=== PATIENT | male | born 1950 | race African-American/Black ===

== ENCOUNTER → 2016-10-20 | Outpatient (CLI) | payer OTHER ==
[2016-10-20 09:23] LABS: Urine RBC None Seen /hpf (0 - 3)
[2016-10-20 09:29] LABS: Basophils # (auto) 0.1 uL; Eosinophils # (auto) 0.2 uL; Eosinophils % (auto) 2.9 % (0.0-7.0); Hematocrit 41.2 % (41.0-53.0); Hemoglobin 13.3 g/dL (13.5-17.5); Lymphocytes # (auto) 1.7 uL; Lymphocytes % (auto) 32.1 % (10.0-50.0); Mean Corpuscular Hemoglobin 27.8 pg (28.0-32.0); Mean Corpuscular Hgb Conc. 32.3 g/dL (32.0-36.0); Mean Corpuscular Volume 85.9 fL (80.0-100.0); Mean Platelet Volume 10.2 fL (7.4-10.4); Monocytes # (auto) 0.4 uL; Monocytes % (auto) 6.5 % (0.0-12.0); Neutrophils # (auto) 3.1 uL; Neutrophils % (auto) 57.5 % (37.0-80.0); Platelet Count (auto) 243 10^3/uL (140-450); Red Cell Distribution Width 13.9 % (11.6-16.0); White Blood Cell 5.4 10^3/uL (4.4-10.8)
[2016-10-20 10:01] LABS: Albumin 3.1 g/dL (3.4-5.0); BUN/Creatinine Ratio 20.8; Bilirubin, Total 0.4 mg/dL (0.2-1.0); Potassium 3.6 mmol/L (3.5-5.1); Total Protein 6.9 g/dL (6.4-8.2)
[2016-10-20 10:59] LABS: Urine Bilirubin Negative (Negative); Urine Blood Negative /uL (Negative); Urine Color Yellow (Yellow); Urine Glucose Normal (Normal); Urine Ketone Negative (Negative); Urine Mucus FEW (None Seen); Urine Nitrite Negative (Negative); Urine Squamous Epithelial Cell FEW /hpf (<5); Urine Urobilinogen Normal (Negative)
== END | disposition home or self-care (01) ==
LOC: LAB 08:58
DX: M54.16 Radiculopathy, lumbar region (principal); Z12.11 Encounter for screening for malignant neoplasm of colon; Z90.12 Acquired absence of left breast and nipple
CPT/HCPCS: 36415; 80053; 80061; 81001; 84443; 85025; 85652

== ENCOUNTER → 2017-03-27 | Outpatient (CLI) | payer OTHER | END | disposition home or self-care (01) | LOC: EDSEX 13:10 → LAB 13:10 | PROVIDERS: ATTEND Internal Medicine | DX: E03.9 Hypothyroidism, unspecified (principal) | CPT/HCPCS: 36415; 84443 ==

== ENCOUNTER 2017-04-03 02:15 | Inpatient (IN) | payer OTHER, MEDICAID ==
[~2017-04-03] VITALS: Ht 165.1 cm; Wt 47.5 kg
[2017-04-03 03:07] LABS: Basophils # (auto) 0.1 uL; Basophils % (auto) 1.2 % (0.0-2.0); Eosinophils # (auto) 0.2 uL; Eosinophils % (auto) 2.1 % (0.0-7.0); Hematocrit 38.2 % (36.0-46.0); Hemoglobin 12.6 g/dL (12.2-16.2); Lymphocytes # (auto) 1.5 uL; Lymphocytes % (auto) 18.7 % (10.0-50.0); Mean Corpuscular Hemoglobin 28.7 pg (28.0-32.0); Mean Platelet Volume 10.2 fL (6.9-10.8); Monocytes # (auto) 0.9 uL; Monocytes % (auto) 11.3 % (0.0-12.0); Neutrophils # (auto) 5.5 uL; Neutrophils % (auto) 66.7 % (37.0-80.0); Nucleated Red Blood Cells % 0.1 %; Platelet Count (auto) 213 10^3/uL (140-450); White Blood Cell 8.2 10^3/uL (4.4-10.8)
[2017-04-03 03:21] LABS: Albumin 2.7 g/dL (3.4-5.0); BUN/Creatinine Ratio 18.2; Calcium 9.3 mg/dL (8.5-10.1); Potassium 3.3 mmol/L (3.5-5.1)
[2017-04-03 03:29] LABS: Bilirubin, Total 0.6 mg/dL (0.2-1.0); Total Protein 7.1 g/dL (6.4-8.2)
[2017-04-03] MEDS ORDERED: SODIUM CHLORIDE 0.9% 1,000 ML IV ONE ×2 (08:07)
[2017-04-03] MEDS ORDERED: CLINDAMYCIN 600MG IV 50 ML IV ONE (08:15)
[2017-04-03] MEDS ORDERED: cefTRIAXone 1GM/50ML D5W 50 ML IV ONE (08:15)
[2017-04-03] MEDS: cefTRIAXone 1GM/50ML D5W 50 ML IV SCH (09:00)
[2017-04-03] MEDS ORDERED: POTASSIUM CHL 10 Meq TABLET PO ONE (09:00)
[2017-04-03] MEDS ORDERED: ACETAMINOPHEN 325 MG TAB PO PRN (09:00)
[2017-04-03] MEDS ORDERED: DOCUSATE SOD 100 MG CAP PO PRN (09:00)
[2017-04-03] MEDS ORDERED: LEVOTHYROXINE SODIUM 100 MCG TAB PO ONE (09:00)
[2017-04-03] MEDS ORDERED: cloNIDine HCL 0.1 MG TAB PO PRN (09:00)
[2017-04-03 09:09] LABS: Lactic Acid w/Reflex 2.4 mmol/L (0.4-2.0)
[2017-04-03] MEDS ORDERED: HYDROcodone-ACET 5/325MG TAB PO ONE (09:15)
[2017-04-03] MEDS: MULTIPLE VITAMIN TAB PO SCH (09:17)
[2017-04-03] MEDS: ASCORBIC ACID 500 MG TAB PO SCH ×2 (09:17→23:10)
[2017-04-03] MEDS: ZINC SULFATE 220 MG CAP PO SCH (09:17)
[2017-04-03 09:39] LABS: REFLEX LACTIC ACID YES OR NO YES
[2017-04-03 09:55] LABS: INR 1.03 (0.9-1.15); Prothrombin Time 11.2 sec (9.37-12.3)
[2017-04-03 10:02] LABS: Urine Bilirubin Negative (Negative); Urine Blood Negative /uL (Negative); Urine Color Yellow (Yellow); Urine Glucose Normal (Normal); Urine Ketone Negative (Negative); Urine Mucus FEW (None Seen); Urine Nitrite Negative (Negative); Urine RBC 8 /hpf (0 - 4); Urine Squamous Epithelial Cell FEW /hpf (<5)
[2017-04-03] MEDS: ONDANSETRON HCL 4 MG/2 ML VIAL IV PRN (10:51)
[2017-04-03] MEDS: MORPHINE SULF INJ 2 MG/ML SYRINGE 1ML IV PRN ×3 (10:52→23:22)
[2017-04-03] MEDS: BOOST PLUS 8 ounce PO SCH ×2 (12:12→18:28)
[2017-04-03] MEDS: SODIUM CHLOR 0.9% PF (SALINE LOCK) 10ML VIAL IV SCH ×2 (14:06→22:00)
[2017-04-03] MEDS: CLINDAMYCIN 300MG IV 50 ML IV SCH ×2 (14:09→23:13)
[2017-04-03 22:13] VITALS: BP 103/70
[2017-04-03] MEDS: HYDROcodone-ACET 5/325MG TAB PO PRN (23:09)
[2017-04-04] VITALS (7 sets, daily range): BP systolic 97–117; BP diastolic 66–78
[2017-04-04] MEDS: SODIUM CHLOR 0.9% PF (SALINE LOCK) 10ML VIAL IV SCH ×3 (05:08→21:23)
[2017-04-04 05:56] LABS: Basophils # (auto) 0.1 uL; Basophils % (auto) 1.4 % (0.0-2.0); Eosinophils # (auto) 0.4 uL; Eosinophils % (auto) 7.5 % (0.0-7.0); Lymphocytes # (auto) 1.6 uL; Lymphocytes % (auto) 26.1 % (10.0-50.0); Mean Corpuscular Hgb Conc. 33.2 g/dL (32.0-36.0); Mean Corpuscular Volume 87.4 fL (80.0-100.0); Mean Platelet Volume 10.1 fL (6.9-10.8); Monocytes # (auto) 0.9 uL; Monocytes % (auto) 14.5 % (0.0-12.0); Neutrophils % (auto) 50.5 % (37.0-80.0); Nucleated Red Blood Cells % 0.1 %; Platelet Count (auto) 173 10^3/uL (140-450); Red Cell Distribution Width 13.5 % (11.8-14.3)
[2017-04-04 06:27] LABS: Albumin 2.1 g/dL (3.4-5.0); BUN/Creatinine Ratio 30.9; Calcium 8.7 mg/dL (8.5-10.1); Potassium 3.9 mmol/L (3.5-5.1)
[2017-04-04 06:30] LABS: Bilirubin, Total 0.4 mg/dL (0.2-1.0); Total Protein 5.8 g/dL (6.4-8.2)
[2017-04-04] MEDS: CLINDAMYCIN 300MG IV 50 ML IV SCH ×3 (06:59→21:23)
[2017-04-04] MEDS: MORPHINE SULF INJ 2 MG/ML SYRINGE 1ML IV PRN ×2 (07:00→18:19)
[2017-04-04] MEDS: LEVOTHYROXINE SODIUM 100 MCG TAB PO SCH (07:00)
[2017-04-04] MEDS: BOOST PLUS 8 ounce PO SCH ×3 (07:35→17:16)
[2017-04-04] MEDS: cefTRIAXone 1GM/50ML D5W 50 ML IV SCH (11:24)
[2017-04-04] MEDS: ASCORBIC ACID 500 MG TAB PO SCH ×2 (11:24→21:23)
[2017-04-04] MEDS: MULTIPLE VITAMIN TAB PO SCH (11:24)
[2017-04-04] MEDS: ZINC SULFATE 220 MG CAP PO SCH (11:24)
[2017-04-04] MEDS ORDERED: LEVO75TA6 PO (17:41)
[2017-04-04] MEDS ORDERED: HYDR12.56 PO (17:41)
[2017-04-04] MEDS ORDERED: LISI10TA6 PO (18:29)
[2017-04-04] MEDS ORDERED: OMEP20CA74 PO (18:29)
[2017-04-05 05:00] VITALS: BP 113/76
[2017-04-05] MEDS: SODIUM CHLOR 0.9% PF (SALINE LOCK) 10ML VIAL IV SCH ×3 (05:23→21:23)
[2017-04-05] MEDS: CLINDAMYCIN 300MG IV 50 ML IV SCH (05:23)
[2017-04-05 06:21] LABS: Basophils # (auto) 0.1 uL; Basophils % (auto) 1.1 % (0.0-2.0); Eosinophils # (auto) 0.4 uL; Eosinophils % (auto) 4.6 % (0.0-7.0); Hemoglobin 11.8 g/dL (12.2-16.2); Lymphocytes # (auto) 1.6 uL; Lymphocytes % (auto) 18.6 % (10.0-50.0); Mean Corpuscular Hemoglobin 28.9 pg (28.0-32.0); Mean Corpuscular Hgb Conc. 33.6 g/dL (32.0-36.0); Mean Corpuscular Volume 86.1 fL (80.0-100.0); Mean Platelet Volume 10.2 fL (6.9-10.8); Monocytes % (auto) 11.5 % (0.0-12.0); Neutrophils # (auto) 5.4 uL; Neutrophils % (auto) 64.2 % (37.0-80.0); Nucleated Red Blood Cells % 0.1 %; Platelet Count (auto) 191 10^3/uL (140-450); Red Cell Distribution Width 12.9 % (11.8-14.3); White Blood Cell 8.5 10^3/uL (4.4-10.8)
[2017-04-05] MEDS: LEVOTHYROXINE SODIUM 100 MCG TAB PO SCH (06:23)
[2017-04-05 06:41] LABS: Albumin 2.2 g/dL (3.4-5.0); BUN/Creatinine Ratio 21.6; Bilirubin, Total 0.8 mg/dL (0.2-1.0); Calcium 8.4 mg/dL (8.5-10.1); Potassium 3.8 mmol/L (3.5-5.1); Total Protein 6.5 g/dL (6.4-8.2)
[2017-04-05 08:00] VITALS: BP 108/69
[2017-04-05] MEDS: ONDANSETRON HCL 4 MG/2 ML VIAL IV PRN ×2 (08:37→15:44)
[2017-04-05] MEDS: cefTRIAXone 1GM/50ML D5W 50 ML IV SCH (08:37)
[2017-04-05] MEDS: MORPHINE SULF INJ 2 MG/ML SYRINGE 1ML IV PRN (08:37)
[2017-04-05] MEDS: BOOST PLUS 8 ounce PO SCH ×3 (08:48→18:43)
[2017-04-05] MEDS: ASCORBIC ACID 500 MG TAB PO SCH ×2 (10:49→21:22)
[2017-04-05] MEDS: ZINC SULFATE 220 MG CAP PO SCH (10:49)
[2017-04-05] MEDS: MULTIPLE VITAMIN TAB PO SCH (10:50)
[2017-04-05 11:56] VITALS: BP 106/66
[2017-04-05] MEDS ORDERED: LEVOFLOXACIN 500 MG TAB PO ONE (14:30)
[2017-04-05] MEDS ORDERED: PANTOPRAZOLE 40 MG TAB PO ONE (15:45)
[2017-04-05 17:29] VITALS: BP 106/62
[2017-04-05 22:00] VITALS: BP 106/73
[2017-04-06 05:00] VITALS: BP 102/72
[2017-04-06] MEDS: ONDANSETRON HCL 4 MG/2 ML VIAL IV PRN ×2 (05:40→09:22)
[2017-04-06] MEDS: MORPHINE SULF INJ 2 MG/ML SYRINGE 1ML IV PRN ×2 (05:40→09:22)
[2017-04-06] MEDS: LEVOTHYROXINE SODIUM 100 MCG TAB PO SCH (06:01)
[2017-04-06] MEDS: SODIUM CHLOR 0.9% PF (SALINE LOCK) 10ML VIAL IV SCH ×3 (06:02→22:03)
[2017-04-06] MEDS: MULTIPLE VITAMIN TAB PO SCH (09:06)
[2017-04-06] MEDS: LEVOFLOXACIN 500 MG TAB PO SCH (09:06)
[2017-04-06] MEDS: ZINC SULFATE 220 MG CAP PO SCH (09:06)
[2017-04-06] MEDS: PANTOPRAZOLE 40 MG TAB PO SCH (09:06)
[2017-04-06] MEDS: ASCORBIC ACID 500 MG TAB PO SCH ×2 (09:06→22:03)
[2017-04-06 09:16] VITALS: BP 98/72
[2017-04-06] MEDS: BOOST PLUS 8 ounce PO SCH ×3 (09:22→18:12)
[2017-04-06] MEDS: SODIUM CHLORIDE 0.9% 1,000 ML IV SCH (11:48)
[2017-04-06 13:07] VITALS: BP 110/80
[2017-04-06 17:38] VITALS: BP 114/54
[2017-04-06] MEDS: ALUM & MAG HYDROX-SIMETH LIQ(MAALOX) 30 ML PO PRN (17:53)
[2017-04-06] MEDS: PRO-STAT 64 30ML PO SCH (18:12)
[2017-04-06] MEDS: TEMAZEPAM 15 MG CAP PO PRN (20:25)
[2017-04-06 22:00] VITALS: BP 112/74
[2017-04-07] MEDS: SODIUM CHLORIDE 0.9% 1,000 ML IV SCH (04:40)
[2017-04-07] MEDS: HYDROcodone-ACET 5/325MG TAB PO PRN ×2 (04:40→11:53)
[2017-04-07] MEDS: MORPHINE SULF INJ 2 MG/ML SYRINGE 1ML IV PRN ×2 (04:47→20:32)
[2017-04-07 05:00] VITALS: BP 115/71
[2017-04-07] MEDS: SODIUM CHLOR 0.9% PF (SALINE LOCK) 10ML VIAL IV SCH ×3 (06:06→21:52)
[2017-04-07] MEDS: LEVOTHYROXINE SODIUM 100 MCG TAB PO SCH (06:07)
[2017-04-07 09:00] VITALS: BP 126/67
[2017-04-07] MEDS: BOOST PLUS 8 ounce PO SCH ×3 (09:28→18:20)
[2017-04-07] MEDS: PRO-STAT 64 30ML PO SCH ×2 (09:28→18:21)
[2017-04-07] MEDS: ASCORBIC ACID 500 MG TAB PO SCH ×2 (09:29→21:52)
[2017-04-07] MEDS: LEVOFLOXACIN 500 MG TAB PO SCH (09:29)
[2017-04-07] MEDS: PANTOPRAZOLE 40 MG TAB PO SCH (09:29)
[2017-04-07] MEDS: ZINC SULFATE 220 MG CAP PO SCH (09:29)
[2017-04-07] MEDS: MULTIPLE VITAMIN TAB PO SCH (09:29)
[2017-04-07] MEDS: ALUM & MAG HYDROX-SIMETH LIQ(MAALOX) 30 ML PO PRN (09:29)
[2017-04-07 13:00] VITALS: BP 131/84
[2017-04-07 17:00] VITALS: BP 121/72
[2017-04-07 20:00] VITALS: BP 124/74
[2017-04-07 22:00] VITALS: BP 124/74
[2017-04-08 05:46] VITALS: BP 112/68
[2017-04-08] MEDS: LEVOTHYROXINE SODIUM 100 MCG TAB PO SCH (06:43)
[2017-04-08] MEDS: SODIUM CHLOR 0.9% PF (SALINE LOCK) 10ML VIAL IV SCH ×3 (06:49→21:19)
[2017-04-08] MEDS: MORPHINE SULF INJ 2 MG/ML SYRINGE 1ML IV PRN ×2 (06:49→18:50)
[2017-04-08 09:00] VITALS: BP 117/71
[2017-04-08] MEDS: PRO-STAT 64 30ML PO SCH ×2 (09:53→18:50)
[2017-04-08] MEDS: SODIUM CHLORIDE 0.9% 1,000 ML IV SCH (09:53)
[2017-04-08] MEDS: ZINC SULFATE 220 MG CAP PO SCH (09:53)
[2017-04-08] MEDS: MULTIPLE VITAMIN TAB PO SCH (09:53)
[2017-04-08] MEDS: LEVOFLOXACIN 500 MG TAB PO SCH (09:53)
[2017-04-08] MEDS: BOOST PLUS 8 ounce PO SCH ×3 (09:53→18:00)
[2017-04-08] MEDS: PANTOPRAZOLE 40 MG TAB PO SCH (09:54)
[2017-04-08] MEDS: ASCORBIC ACID 500 MG TAB PO SCH ×2 (09:54→21:14)
[2017-04-08] MEDS: HYDROcodone-ACET 5/325MG TAB PO PRN ×2 (10:02→22:02)
[2017-04-08 13:00] VITALS: BP 125/73
[2017-04-08 17:00] VITALS: BP 122/72
[2017-04-08 20:00] VITALS: BP 118/74
[2017-04-08] MEDS: TEMAZEPAM 15 MG CAP PO PRN (21:14)
[2017-04-08 22:00] VITALS: BP 118/74
[2017-04-09 05:19] VITALS: BP 142/98
[2017-04-09 05:22] VITALS: BP 119/72
[2017-04-09] MEDS: SODIUM CHLOR 0.9% PF (SALINE LOCK) 10ML VIAL IV SCH ×3 (06:00→21:35)
[2017-04-09] MEDS: LEVOTHYROXINE SODIUM 100 MCG TAB PO SCH (06:47)
[2017-04-09 09:05] VITALS: BP 125/75
[2017-04-09] MEDS: MULTIPLE VITAMIN TAB PO SCH (09:37)
[2017-04-09] MEDS: ASCORBIC ACID 500 MG TAB PO SCH ×2 (09:37→21:34)
[2017-04-09] MEDS: ZINC SULFATE 220 MG CAP PO SCH (09:37)
[2017-04-09] MEDS: HYDROcodone-ACET 5/325MG TAB PO PRN (09:37)
[2017-04-09] MEDS: PANTOPRAZOLE 40 MG TAB PO SCH (09:37)
[2017-04-09] MEDS: LEVOFLOXACIN 750MG 150 ML IV SCH (09:38)
[2017-04-09] MEDS: PRO-STAT 64 30ML PO SCH ×2 (09:38→18:51)
[2017-04-09] MEDS: BOOST PLUS 8 ounce PO SCH ×3 (09:39→18:50)
[2017-04-09 12:52] VITALS: BP 134/80
[2017-04-09] MEDS: MORPHINE SULF INJ 2 MG/ML SYRINGE 1ML IV PRN ×2 (14:04→20:23)
[2017-04-09] MEDS ORDERED: fentaNYL CITRATE 100 MCG/2 ML VL ONE (14:38)
[2017-04-09] MEDS ORDERED: SODIUM CHLORIDE LOCK 20 ML ONE (14:38)
[2017-04-09] MEDS ORDERED: PROPOFOL 10 MG/ML 20 ML IV ONE (14:38)
[2017-04-09] MEDS ORDERED: MIDAZOLAM HCL 1MG/1ML-2 ML VIAL ONE (14:38)
[2017-04-09] MEDS ORDERED: METOCLOPRAMIDE HCL 5MG/ml INJ 2ml VIAL IV ONE (15:15)
[2017-04-09] MEDS: HYDROmorphone HCL 2 MG/ML VL IV PRN ×2 (16:35→16:45)
[2017-04-09 20:00] VITALS: BP 143/82
[2017-04-09] MEDS: TEMAZEPAM 15 MG CAP PO PRN (21:35)
[2017-04-09 22:23] VITALS: BP 143/82
[2017-04-10] MEDS: MORPHINE SULF INJ 2 MG/ML SYRINGE 1ML IV PRN ×2 (03:16→19:11)
[2017-04-10 05:02] VITALS: BP 115/68
[2017-04-10 06:28] LABS: Basophils # (auto) 0.1 uL; Eosinophils # (auto) 0.5 uL; Eosinophils % (auto) 7.2 % (0.0-7.0); Hemoglobin 11.3 g/dL (12.2-16.2); Lymphocytes # (auto) 1.6 uL; Lymphocytes % (auto) 21.1 % (10.0-50.0); Mean Corpuscular Hemoglobin 28.4 pg (28.0-32.0); Mean Corpuscular Hgb Conc. 33.2 g/dL (32.0-36.0); Mean Corpuscular Volume 85.6 fL (80.0-100.0); Mean Platelet Volume 8.8 fL (6.9-10.8); Monocytes # (auto) 0.8 uL; Neutrophils # (auto) 4.7 uL; Neutrophils % (auto) 60.7 % (37.0-80.0); Nucleated Red Blood Cells % 0.1 %; Platelet Count (auto) 328 10^3/uL (140-450); Red Cell Distribution Width 13.2 % (11.8-14.3); White Blood Cell 7.7 10^3/uL (4.4-10.8)
[2017-04-10] MEDS: LEVOTHYROXINE SODIUM 100 MCG TAB PO SCH (06:29)
[2017-04-10] MEDS: SODIUM CHLOR 0.9% PF (SALINE LOCK) 10ML VIAL IV SCH ×3 (06:29→22:19)
[2017-04-10 06:55] LABS: Potassium 3.5 mmol/L (3.5-5.1)
[2017-04-10 07:01] LABS: BUN/Creatinine Ratio 20.9; Calcium 8.8 mg/dL (8.5-10.1); Magnesium 1.5 mg/dL (1.6-2.6)
[2017-04-10] MEDS: BOOST PLUS 8 ounce PO SCH ×3 (08:22→17:15)
[2017-04-10] MEDS: PRO-STAT 64 30ML PO SCH ×2 (08:22→17:15)
[2017-04-10 09:20] VITALS: BP 110/51
[2017-04-10] MEDS: ZINC SULFATE 220 MG CAP PO SCH (09:58)
[2017-04-10] MEDS: ASCORBIC ACID 500 MG TAB PO SCH ×2 (09:58→22:19)
[2017-04-10] MEDS: LEVOFLOXACIN 750MG 150 ML IV SCH (09:58)
[2017-04-10] MEDS: PANTOPRAZOLE 40 MG TAB PO SCH (09:58)
[2017-04-10] MEDS: MULTIPLE VITAMIN TAB PO SCH (09:58)
[2017-04-10 13:13] VITALS: BP 128/76
[2017-04-10] MEDS ORDERED: POTASSIUM CHL 20 Meq TABLET PO ONE (15:30)
[2017-04-10 16:58] VITALS: BP 126/74
[2017-04-10] MEDS: MAGNESIUM SULFATE 1GM/100ML 100 ML IV SCH ×2 (19:05→19:06)
[2017-04-10 20:00] VITALS: BP 132/75
[2017-04-10 22:00] VITALS: BP 132/75
[2017-04-10] MEDS: TEMAZEPAM 15 MG CAP PO PRN (22:20)
[2017-04-10] MEDS: HYDROcodone-ACET 5/325MG TAB PO PRN (22:24)
[2017-04-11] VITALS (7 sets, daily range): BP systolic 100–158; BP diastolic 54–93
[2017-04-11] MEDS: SODIUM CHLOR 0.9% PF (SALINE LOCK) 10ML VIAL IV SCH ×3 (06:00→21:34)
[2017-04-11] MEDS: LEVOTHYROXINE SODIUM 100 MCG TAB PO SCH (06:44)
[2017-04-11 06:49] LABS: Potassium 3.3 mmol/L (3.5-5.1)
[2017-04-11 06:56] LABS: Magnesium 1.7 mg/dL (1.6-2.6)
[2017-04-11] MEDS: BOOST PLUS 8 ounce PO SCH ×3 (07:33→18:07)
[2017-04-11] MEDS: PRO-STAT 64 30ML PO SCH ×2 (07:33→18:07)
[2017-04-11] MEDS: PANTOPRAZOLE 40 MG TAB PO SCH (12:12)
[2017-04-11] MEDS: ASCORBIC ACID 500 MG TAB PO SCH ×2 (12:12→21:34)
[2017-04-11] MEDS: ZINC SULFATE 220 MG CAP PO SCH (12:12)
[2017-04-11] MEDS: MULTIPLE VITAMIN TAB PO SCH (12:12)
[2017-04-11] MEDS: LEVOFLOXACIN 750MG 150 ML IV SCH (12:13)
[2017-04-11] MEDS ORDERED: POTASSIUM CHL 10 Meq TABLET PO ONE (13:00)
[2017-04-11] MEDS ORDERED: POTASSIUM CHL 10% (20 MEQ/15ML) 15ml ORAL SOLN PO ONE (14:30)
[2017-04-11] MEDS: MORPHINE SULF INJ 2 MG/ML SYRINGE 1ML IV PRN (21:34)
[2017-04-12 05:27] VITALS: BP 110/63
[2017-04-12] MEDS: SODIUM CHLOR 0.9% PF (SALINE LOCK) 10ML VIAL IV SCH ×3 (06:00→22:37)
[2017-04-12 06:43] LABS: Basophils # (auto) 0.1 uL; Basophils % (auto) 0.9 % (0.0-2.0); Eosinophils # (auto) 0.3 uL; Eosinophils % (auto) 3.3 % (0.0-7.0); Hematocrit 33.1 % (36.0-46.0); Hemoglobin 11.2 g/dL (12.2-16.2); Lymphocytes % (auto) 20.5 % (10.0-50.0); Mean Corpuscular Hemoglobin 28.7 pg (28.0-32.0); Mean Corpuscular Hgb Conc. 33.7 g/dL (32.0-36.0); Mean Corpuscular Volume 84.9 fL (80.0-100.0); Mean Platelet Volume 8.7 fL (6.9-10.8); Monocytes # (auto) 0.7 uL; Monocytes % (auto) 7.4 % (0.0-12.0); Neutrophils # (auto) 6.5 uL; Neutrophils % (auto) 67.9 % (37.0-80.0); Platelet Count (auto) 378 10^3/uL (140-450); Red Cell Distribution Width 13.7 % (11.8-14.3); White Blood Cell 9.6 10^3/uL (4.4-10.8)
[2017-04-12] MEDS: LEVOTHYROXINE SODIUM 100 MCG TAB PO SCH (06:49)
[2017-04-12] MEDS: HYDROcodone-ACET 5/325MG TAB PO PRN (06:54)
[2017-04-12 06:57] LABS: Albumin 2.1 g/dL (3.4-5.0); Calcium 8.9 mg/dL (8.5-10.1); Potassium 3.6 mmol/L (3.5-5.1)
[2017-04-12 06:59] LABS: BUN/Creatinine Ratio 22.9; Bilirubin, Total 0.5 mg/dL (0.2-1.0); Total Protein 6.1 g/dL (6.4-8.2)
[2017-04-12] MEDS: PRO-STAT 64 30ML PO SCH ×2 (08:49→18:00)
[2017-04-12] MEDS: BOOST PLUS 8 ounce PO SCH ×3 (08:49→18:34)
[2017-04-12 09:38] VITALS: BP 140/62
[2017-04-12] MEDS: ASCORBIC ACID 500 MG TAB PO SCH ×2 (10:10→22:37)
[2017-04-12] MEDS: PANTOPRAZOLE 40 MG TAB PO SCH (10:10)
[2017-04-12] MEDS: MULTIPLE VITAMIN TAB PO SCH (10:10)
[2017-04-12] MEDS: ZINC SULFATE 220 MG CAP PO SCH (10:11)
[2017-04-12] MEDS: LEVOFLOXACIN 750MG 150 ML IV SCH (10:11)
[2017-04-12 14:06] VITALS: BP 131/79
[2017-04-12 17:02] VITALS: BP 151/61
[2017-04-12] MEDS ORDERED: HYDR-531 PO (17:08)
[2017-04-12] MEDS: ALUM & MAG HYDROX-SIMETH LIQ(MAALOX) 30 ML PO PRN (17:11)
[2017-04-12] MEDS: LACTULOSE 20Gm/30ML SOLN PO PRN (20:05)
[2017-04-12 22:15] VITALS: BP 146/85
[2017-04-12] MEDS: TEMAZEPAM 15 MG CAP PO PRN (22:37)
[2017-04-13 05:26] VITALS: BP 115/72
[2017-04-13 05:56] LABS: Potassium 3.8 mmol/L (3.5-5.1)
[2017-04-13] MEDS: SODIUM CHLOR 0.9% PF (SALINE LOCK) 10ML VIAL IV SCH ×3 (06:00→22:06)
[2017-04-13 06:01] LABS: Magnesium 1.6 mg/dL (1.6-2.6)
[2017-04-13] MEDS: LEVOTHYROXINE SODIUM 100 MCG TAB PO SCH (06:44)
[2017-04-13 07:38] VITALS: BP 135/80
[2017-04-13] MEDS: PRO-STAT 64 30ML PO SCH ×2 (08:00→18:00)
[2017-04-13] MEDS: BOOST PLUS 8 ounce PO SCH ×3 (08:39→18:19)
[2017-04-13] MEDS: ZINC SULFATE 220 MG CAP PO SCH (10:38)
[2017-04-13] MEDS: LEVOFLOXACIN 750MG 150 ML IV SCH (10:38)
[2017-04-13] MEDS: PANTOPRAZOLE 40 MG TAB PO SCH (10:38)
[2017-04-13] MEDS: MULTIPLE VITAMIN TAB PO SCH (10:39)
[2017-04-13] MEDS: ASCORBIC ACID 500 MG TAB PO SCH ×2 (10:39→22:07)
[2017-04-13] MEDS ORDERED: POTASSIUM CHL 20 Meq TABLET PO ONE (12:30)
[2017-04-13] MEDS ORDERED: MAGNESIUM SULFATE 1GM/100ML 100 ML IV ONE (12:30)
[2017-04-13] MEDS ORDERED: SODIUM CHLORIDE LOCK 0 ML ONE (15:38)
[2017-04-13] MEDS ORDERED: PROPOFOL 10 MG/ML 20 ML IV ONE (15:38)
[2017-04-13] MEDS ORDERED: MEPERIDINE HCL (50 MG/ML) 1 ML VIAL ONE (15:38)
[2017-04-13] MEDS ORDERED: fentaNYL CITRATE 100 MCG/2 ML VL ONE (15:38)
[2017-04-13] MEDS ORDERED: MIDAZOLAM HCL 1MG/1ML-2 ML VIAL ONE (15:38)
[2017-04-13] MEDS ORDERED: ONDANSETRON HCL 4 MG/2 ML VIAL ONE (15:38)
[2017-04-13 16:38] VITALS: BP 143/82
[2017-04-13 21:57] VITALS: BP 145/86
[2017-04-13] MEDS: MORPHINE SULF INJ 2 MG/ML SYRINGE 1ML IV PRN (22:07)
[2017-04-14 05:14] VITALS: BP 129/67
[2017-04-14] MEDS: SODIUM CHLOR 0.9% PF (SALINE LOCK) 10ML VIAL IV SCH ×3 (06:20→21:57)
[2017-04-14] MEDS: LEVOTHYROXINE SODIUM 100 MCG TAB PO SCH (06:21)
[2017-04-14 08:00] VITALS: BP 129/67
[2017-04-14 09:00] VITALS: BP 119/75
[2017-04-14] MEDS: ASCORBIC ACID 500 MG TAB PO SCH ×2 (10:22→21:57)
[2017-04-14] MEDS: LEVOFLOXACIN 750MG 150 ML IV SCH (10:22)
[2017-04-14] MEDS: MULTIPLE VITAMIN TAB PO SCH (10:22)
[2017-04-14] MEDS: ZINC SULFATE 220 MG CAP PO SCH (10:22)
[2017-04-14] MEDS: PANTOPRAZOLE 40 MG TAB PO SCH (10:22)
[2017-04-14] MEDS: BOOST PLUS 8 ounce PO SCH ×3 (10:28→18:16)
[2017-04-14] MEDS: PRO-STAT 64 30ML PO SCH ×2 (10:28→18:16)
[2017-04-14 13:00] VITALS: BP 132/75
[2017-04-14 16:49] VITALS: BP 124/75
[2017-04-14 22:00] VITALS: BP 129/77
[2017-04-14] MEDS: TEMAZEPAM 15 MG CAP PO PRN (22:38)
[2017-04-15 05:00] VITALS: BP 126/74
[2017-04-15] MEDS: LEVOTHYROXINE SODIUM 100 MCG TAB PO SCH (06:14)
[2017-04-15] MEDS: SODIUM CHLOR 0.9% PF (SALINE LOCK) 10ML VIAL IV SCH ×3 (06:14→21:55)
[2017-04-15 08:00] VITALS: BP 126/74
[2017-04-15 08:55] VITALS: BP 135/60
[2017-04-15] MEDS: LEVOFLOXACIN 750MG 150 ML IV SCH (10:49)
[2017-04-15] MEDS: BOOST PLUS 8 ounce PO SCH ×3 (10:49→17:48)
[2017-04-15] MEDS: MULTIPLE VITAMIN TAB PO SCH (10:49)
[2017-04-15] MEDS: ZINC SULFATE 220 MG CAP PO SCH (10:49)
[2017-04-15] MEDS: ASCORBIC ACID 500 MG TAB PO SCH ×2 (10:49→21:55)
[2017-04-15] MEDS: PRO-STAT 64 30ML PO SCH ×2 (10:49→17:48)
[2017-04-15] MEDS: PANTOPRAZOLE 40 MG TAB PO SCH (10:49)
[2017-04-15 13:04] VITALS: BP 137/92
[2017-04-15] MEDS: LACTULOSE 20Gm/30ML SOLN PO PRN (13:58)
[2017-04-15 16:22] VITALS: BP 136/89
[2017-04-15 22:00] VITALS: BP 152/91
[2017-04-15] MEDS: TEMAZEPAM 15 MG CAP PO PRN (22:37)
[2017-04-16 05:11] VITALS: BP 127/82
[2017-04-16] MEDS: SODIUM CHLOR 0.9% PF (SALINE LOCK) 10ML VIAL IV SCH (06:03)
[2017-04-16] MEDS: LEVOTHYROXINE SODIUM 100 MCG TAB PO SCH (06:04)
[2017-04-16 08:00] VITALS: BP 127/82
[2017-04-16 08:15] LABS: Basophils # (auto) 0 uL; Basophils % (auto) 0.4 % (0.0-2.0); Eosinophils # (auto) 0.4 uL; Hematocrit 35.7 % (36.0-46.0); Hemoglobin 11.8 g/dL (12.2-16.2); Lymphocytes % (auto) 22.5 % (10.0-50.0); Mean Corpuscular Hemoglobin 28.4 pg (28.0-32.0); Mean Corpuscular Hgb Conc. 33.1 g/dL (32.0-36.0); Mean Corpuscular Volume 85.8 fL (80.0-100.0); Mean Platelet Volume 8.4 fL (6.9-10.8); Monocytes # (auto) 0.8 uL; Monocytes % (auto) 8.9 % (0.0-12.0); Neutrophils # (auto) 5.6 uL; Neutrophils % (auto) 64.2 % (37.0-80.0); Nucleated Red Blood Cells % 0.2 %; Platelet Count (auto) 400 10^3/uL (140-450); Red Cell Distribution Width 14.7 % (11.8-14.3); White Blood Cell 8.7 10^3/uL (4.4-10.8)
[2017-04-16 08:38] LABS: Calcium 8.8 mg/dL (8.5-10.1); Potassium 3.4 mmol/L (3.5-5.1)
[2017-04-16 09:18] VITALS: BP 145/74
[2017-04-16] MEDS: MULTIPLE VITAMIN TAB PO SCH (11:10)
[2017-04-16] MEDS: PANTOPRAZOLE 40 MG TAB PO SCH (11:10)
[2017-04-16] MEDS: ASCORBIC ACID 500 MG TAB PO SCH (11:10)
[2017-04-16] MEDS: ZINC SULFATE 220 MG CAP PO SCH (11:10)
[2017-04-16] MEDS: PRO-STAT 64 30ML PO SCH (11:11)
[2017-04-16] MEDS: BOOST PLUS 8 ounce PO SCH (11:11)
[2017-04-16] MEDS: LEVOFLOXACIN 750MG 150 ML IV SCH (11:11)
[2017-04-16] MEDS ORDERED: POTASSIUM CHL 20 Meq TABLET PO ONE (12:15)
[2017-04-16] MEDS ORDERED: SACC250C PO (12:17)
[2017-04-16] MEDS ORDERED: LEVO750T2 PO (12:17)
[2017-04-16] MEDS ORDERED: LEVOTHYROXINE SODIUM 100 MCG TAB PO ONE (12:30)
[2017-04-16] MEDS ORDERED: ASCORBIC ACID 500 MG TAB PO ONE (12:30)
[2017-04-16] MEDS ORDERED: DOCUSATE SOD 100 MG CAP PO PRN (12:30)
[2017-04-16] MEDS ORDERED: ACETAMINOPHEN 325 MG TAB PO PRN (12:30)
[2017-04-16] MEDS ORDERED: ONDANSETRON HCL 4 MG/2 ML VIAL IV PRN (12:30)
[2017-04-16] MEDS ORDERED: cloNIDine HCL 0.1 MG TAB PO PRN (12:30)
[2017-04-16] MEDS ORDERED: MULTIPLE VITAMIN TAB PO ONE (12:30)
[2017-04-16] MEDS ORDERED: POTASSIUM CHL 10% (20 MEQ/15ML) 15ml ORAL SOLN PO ONE (13:30)
[2017-04-16] MEDS ORDERED: SODIUM CHLOR 0.9% PF (SALINE LOCK) 10ML VIAL IV SCH (14:00)
[2017-04-16 14:36] VITALS: BP_SYST 142; BP_SYST 150; BP_DIAS 104; BP_DIAS 84
[2017-04-16 17:37] VITALS: BP 145/91
[2017-04-16] MEDS ORDERED: BOOST PLUS 8 ounce PO SCH (18:00)
[2017-04-16] MEDS ORDERED: ASCORBIC ACID 500 MG TAB PO SCH (22:00)
[2017-04-17] MEDS ORDERED: LEVOTHYROXINE SODIUM 100 MCG TAB PO SCH (07:00)
[2017-04-17] MEDS ORDERED: ZINC SULFATE 220 MG CAP PO SCH (10:00)
[2017-04-17] MEDS ORDERED: MULTIPLE VITAMIN TAB PO SCH (10:00)
== END 2017-04-16 17:47 | disposition home health service (06) | DRG 907 ==
LOC: ER 02:18 → OVERFLOW 02:19 → WEST WING 17:46
PROVIDERS: ADMIT Internal Medicine; ATTEND Internal Medicine
PROC: 0HBUXZZ (ICD-10-PCS; 2017-04-09)
PROC: 0HPU0NZ Removal of Tissue Expander from Left Breast, Open Approach (ICD-10-PCS; principal; 2017-04-09 15:12)
DX: T85.79XA Infection and inflammatory reaction due to other internal prosthetic devices, implants and grafts, initial encounter (principal); A41.9 Sepsis, unspecified organism; N17.0 Acute kidney failure with tubular necrosis; E43 Unspecified severe protein-calorie malnutrition; N18.3 Chronic kidney disease, stage 3 (moderate); E87.1 Hypo-osmolality and hyponatremia; B95.61 Methicillin susceptible Staphylococcus aureus infection as the cause of diseases classified elsewhere; Q85.00 Neurofibromatosis, unspecified; T81.30XA Disruption of wound, unspecified, initial encounter; Z68.1 Body mass index [BMI] 19.9 or less, adult; I12.9 Hypertensive chronic kidney disease with stage 1 through stage 4 chronic kidney disease, or unspecified chronic kidney disease; E03.9 Hypothyroidism, unspecified; E87.6 Hypokalemia; N61.1 Abscess of the breast and nipple; Y83.1 Surgical operation with implant of artificial internal device as the cause of abnormal reaction of the patient, or of later complication, without mention of misadventure at the time of the procedure; Z90.13 Acquired absence of bilateral breasts and nipples; Z85.3 Personal history of malignant neoplasm of breast; Z92.3 Personal history of irradiation; Z82.49 Family history of ischemic heart disease and other diseases of the circulatory system; Y92.89 Other specified places as the place of occurrence of the external cause
CPT/HCPCS: 36415; 71010; 76642; 80048; 80053; 81001; 83605; 83735; 84132; 85025; 85610; 86141; 86850; 86900; 86901; 87040; 87077; 87086; 87186; 87205; 93005; 96361; 96365; 96367; 96375; 97110; 97116; 97163; 97530; J0696; J1956; J2250; J2405; J2704; J3490

== ENCOUNTER → 2017-11-22 | Outpatient (CLI) | payer OTHER ==
[~2017-11-22] MED LIST: HYDR-531 PO; HYDR12.56 PO; LEVO750T2 PO; LEVO75TA6 PO; LISI10TA6 PO; MET50T PO; OMEP20CA74 PO; SACC250C PO
[2017-11-22 12:14] LABS: Basophils # (auto) 0.1 uL; Eosinophils # (auto) 0.2 uL; Eosinophils % (auto) 2.6 % (0.0-7.0); Hematocrit 43.4 % (36.0-46.0); Hemoglobin 14.6 g/dL (12.2-16.2); Lymphocytes # (auto) 2.1 uL; Mean Corpuscular Hemoglobin 28.8 pg (28.0-32.0); Mean Corpuscular Hgb Conc. 33.6 g/dL (32.0-36.0); Mean Corpuscular Volume 85.9 fL (80.0-100.0); Monocytes # (auto) 0.5 uL; Monocytes % (auto) 7.4 % (0.0-12.0); Neutrophils # (auto) 4.1 uL; Nucleated Red Blood Cells % 0.1 %; Platelet Count (auto) 225 10^3/uL (140-450); Red Blood Cells 5.05 10^6/uL (4.0-5.20); Red Cell Distribution Width 13.9 % (11.8-14.3); White Blood Cell 6.9 10^3/uL (4.4-10.8)
[2017-11-22 12:28] LABS: Albumin 3.3 g/dL (3.4-5.0); BUN/Creatinine Ratio 37.5; Bilirubin, Total 0.5 mg/dL (0.2-1.0); Potassium 3.5 mmol/L (3.5-5.1); Total Protein 7.4 g/dL (6.4-8.2)
== END | disposition home or self-care (01) ==
LOC: LAB 11:28
PROVIDERS: ATTEND Internal Medicine
DX: E03.9 Hypothyroidism, unspecified (principal); I12.9 Hypertensive chronic kidney disease with stage 1 through stage 4 chronic kidney disease, or unspecified chronic kidney disease; N18.3 Chronic kidney disease, stage 3 (moderate); Z85.3 Personal history of malignant neoplasm of breast
CPT/HCPCS: 36415; 80053; 83615; 85025; 86300

== ENCOUNTER → 2018-01-07 | Day surgery (SDC) | payer OTHER ==
[2018-01-01 11:42] LABS: Basophils # (auto) 0.1 uL; Basophils % (auto) 1.6 % (0.0-2.0); Eosinophils # (auto) 0.3 uL; Eosinophils % (auto) 4.5 % (0.0-7.0); Hematocrit 45.3 % (36.0-46.0); Hemoglobin 14.9 g/dL (12.2-16.2); Lymphocytes # (auto) 1.9 uL; Lymphocytes % (auto) 30.1 % (10.0-50.0); Mean Corpuscular Hemoglobin 28.5 pg (28.0-32.0); Mean Corpuscular Hgb Conc. 32.9 g/dL (32.0-36.0); Mean Corpuscular Volume 86.5 fL (80.0-100.0); Monocytes # (auto) 0.6 uL; Monocytes % (auto) 9.8 % (0.0-12.0); Neutrophils # (auto) 3.4 uL; Nucleated Red Blood Cells % 0.1 %; Platelet Count (auto) 211 10^3/uL (140-450); Red Blood Cells 5.24 10^6/uL (4.0-5.20); White Blood Cell 6.3 10^3/uL (4.4-10.8)
[2018-01-01 12:02] LABS: INR 1.03 (0.9-1.15); Partial Thromboplastin Time 27.6 sec (23.78-33.04)
[~2018-01-07] VITALS: Ht 165.1 cm; Wt 40.8 kg
[~2018-01-07] MED LIST changes: -LEVO750T2 PO; -LISI10TA6 PO; -SACC250C PO; +SODIUM CHLORIDE LOCK 10 ML ONE; +diphenhdrAMINE HCL 50 MG/1 ML VL ONE
[2018-01-07] MEDS: MIDAZOLAM HCL 5 MG/ML-1ML VIAL ONE ×3 (10:36→10:40)
[2018-01-07] MEDS: fentaNYL CITRATE 100 MCG/2 ML VL ONE ×3 (10:36→10:40)
[2018-01-07 11:26] VITALS: BP 94/72
== END | disposition home or self-care (01) ==
LOC: GI 08:32
PROVIDERS: ATTEND Internal Medicine Gastroenterology
DX: Z12.11 Encounter for screening for malignant neoplasm of colon (principal); K64.8 Other hemorrhoids; Z85.3 Personal history of malignant neoplasm of breast; Z90.12 Acquired absence of left breast and nipple; Z79.899 Other long term (current) drug therapy
CPT/HCPCS: 36415; 45380; 85025; 85610; 85730; J1200; J2250; J3010; 99152

== ENCOUNTER 2018-03-09 15:37 | Inpatient (IN) | payer MEDICAID, OTHER ==
[~2018-03-09] VITALS: Ht 165.1 cm; Wt 48.7 kg
[~2018-03-09 15:37] MED LIST changes: -SODIUM CHLORIDE LOCK 10 ML ONE; -diphenhdrAMINE HCL 50 MG/1 ML VL ONE
[2018-03-09] MEDS ORDERED: SODIUM CHLORIDE 0.9% 1,000 ML IV ONE (16:03)
[2018-03-09 16:48] LABS: Basophils # (auto) 0.1 uL; Basophils % (auto) 1.1 % (0.0-2.0); Eosinophils # (auto) 0.2 uL; Eosinophils % (auto) 2.5 % (0.0-7.0); Hematocrit 44.2 % (36.0-46.0); Hemoglobin 14.1 g/dL (12.2-16.2); Lymphocytes # (auto) 3.3 uL; Mean Corpuscular Hemoglobin 29.2 pg (28.0-32.0); Mean Corpuscular Volume 91.1 fL (80.0-100.0); Monocytes # (auto) 0.7 uL; Monocytes % (auto) 7.7 % (0.0-12.0); Neutrophils # (auto) 5.1 uL; Neutrophils % (auto) 53.7 % (37.0-80.0); Nucleated Red Blood Cells % 0.3 %; Platelet Count (auto) 280 10^3/uL (140-450); Red Blood Cells 4.85 10^6/uL (4.0-5.20); Red Cell Distribution Width 16.3 % (11.8-14.3); White Blood Cell 9.4 10^3/uL (4.4-10.8)
[2018-03-09 16:59] LABS: Calcium 7.8 mg/dL (8.5-10.1); Potassium 4.2 mmol/L (3.5-5.1)
[2018-03-09 17:03] LABS: BUN/Creatinine Ratio 17.3; Magnesium 1.7 mg/dL (1.6-2.6)
[2018-03-09 17:08] LABS: Bilirubin, Total 0.6 mg/dL (0.2-1.0)
[2018-03-09] MEDS ORDERED: NITROGLYCERIN 0.4 MG SL TAB SL PRN (19:00)
[2018-03-09] MEDS ORDERED: ONDANSETRON HCL 4 MG/2 ML VIAL IV PRN (19:00)
[2018-03-09] MEDS ORDERED: MELOXICAM 7.5MG PO PRN (19:00)
[2018-03-09] MEDS ORDERED: DOCUSATE SOD 100 MG CAP PO PRN (19:00)
[2018-03-09] MEDS ORDERED: cloNIDine HCL 0.1 MG TAB PO PRN (19:00)
[2018-03-09] MEDS ORDERED: TEMAZEPAM 15 MG CAP PO PRN (19:00)
[2018-03-09] MEDS ORDERED: MORPHINE SULF INJ 2 MG/ML SYRINGE 1ML IV PRN (19:00)
[2018-03-09] MEDS ORDERED: ACETAMINOPHEN 325 MG TAB PO PRN (19:00)
[2018-03-09] MEDS ORDERED: HYDROcodone-ACET 5/325MG TAB PO PRN (19:00)
[2018-03-09 20:00] VITALS: BP 110/82
[2018-03-09 21:28] VITALS: BP 110/82
[2018-03-09] MEDS: SODIUM CHLOR 0.9% PF (SALINE LOCK) 10ML VIAL/SYR IV SCH (22:00)
[2018-03-10 05:26] VITALS: BP 125/89
[2018-03-10] MEDS: SODIUM CHLOR 0.9% PF (SALINE LOCK) 10ML VIAL/SYR IV SCH ×3 (06:06→21:35)
[2018-03-10 06:23] LABS: Basophils # (auto) 0.1 uL; Basophils % (auto) 1.2 % (0.0-2.0); Eosinophils # (auto) 0.1 uL; Eosinophils % (auto) 0.7 % (0.0-7.0); Hematocrit 36.2 % (36.0-46.0); Lymphocytes # (auto) 1.8 uL; Lymphocytes % (auto) 22.9 % (10.0-50.0); Mean Corpuscular Hemoglobin 29.8 pg (28.0-32.0); Mean Corpuscular Hgb Conc. 33.2 g/dL (32.0-36.0); Mean Corpuscular Volume 89.6 fL (80.0-100.0); Monocytes # (auto) 0.9 uL; Neutrophils # (auto) 5.2 uL; Neutrophils % (auto) 64.2 % (37.0-80.0); Nucleated Red Blood Cells % 0.1 %; Platelet Count (auto) 192 10^3/uL (140-450); Red Blood Cells 4.04 10^6/uL (4.0-5.20); Red Cell Distribution Width 16.2 % (11.8-14.3); White Blood Cell 8.1 10^3/uL (4.4-10.8)
[2018-03-10] MEDS ORDERED: LEVOTHYROXINE SODIUM 25 MCG TAB PO SCH (06:30)
[2018-03-10 06:45] LABS: Albumin 2.6 g/dL (3.4-5.0); BUN/Creatinine Ratio 31.1; Bilirubin, Total 0.6 mg/dL (0.2-1.0); Calcium 7.4 mg/dL (8.5-10.1); Potassium 3.4 mmol/L (3.5-5.1); Total Protein 5.7 g/dL (6.4-8.2)
[2018-03-10 07:23] LABS: Urine Bacteria NONE SEEN /hpf (None Seen); Urine Blood Negative /uL (Negative); Urine Mucus FEW (None Seen); Urine Specific Gravity 1.025 (1.001-1.035); Urine WBC 25 /hpf (0 - 5)
[2018-03-10 07:25] LABS: Alcohol, Urine < 3.0 mg/dL (0-5); Amphetamine Screen, Urine NEGATIVE (NEGATIVE); Barbiturate Scree,Urine NEGATIVE (NEGATIVE); Benzodiazephine Screen, Urine NEGATIVE (NEGATIVE); Cannabinoid Screen, Urine NEGATIVE (NEGATIVE); Cocaine Screen, Urine NEGATIVE (NEGATIVE); Opiate Scree,Urine NEGATIVE (NEGATIVE); Phencyclidine Screen, Urine NEGATIVE (NEGATIVE)
[2018-03-10 08:16] VITALS: BP 126/89
[2018-03-10] MEDS: Ensure Enlive Strawberry 8oz Bottle PO SCH ×3 (09:28→18:43)
[2018-03-10] MEDS: METOPROLOL SUCCINATE XL 50 MG TAB PO SCH (09:28)
[2018-03-10] MEDS: LORATADINE 10 MG TAB PO SCH (09:29)
[2018-03-10] MEDS: MULTIPLE VITAMIN TAB PO SCH (09:29)
[2018-03-10] MEDS ORDERED: cefTRIAXone 1GM/10ml IVPUSH 10 ML IV ONE (12:15)
[2018-03-10 12:21] VITALS: BP 116/83
[2018-03-10] MEDS ORDERED: LORazepam 2MG/ML-1ML VIAL IV PRN (16:45)
[2018-03-10 17:08] VITALS: BP 135/98
[2018-03-10] MEDS ORDERED: PATIENTS OWN MEDICATION IN PRN (19:00)
[2018-03-10] MEDS: ATORVASTATIN 20 MG TAB PO SCH (21:34)
[2018-03-10] MEDS: ALBUTEROL SULF 2.5 MG/0.5ML(0.5%) NEB SOLN NEB SCH (22:12)
[2018-03-10] MEDS: BUDESONIDE (INHALATION) 0.5 MG/2 ML NEB NEB SCH (22:12)
[2018-03-11] VITALS (7 sets, daily range): BP systolic 127–140; BP diastolic 89–103
[2018-03-11] MEDS: SODIUM CHLOR 0.9% PF (SALINE LOCK) 10ML VIAL/SYR IV SCH ×3 (05:37→21:45)
[2018-03-11] MEDS: ALBUTEROL SULF 2.5 MG/0.5ML(0.5%) NEB SOLN NEB SCH ×3 (05:46→22:50)
[2018-03-11] MEDS: BUDESONIDE (INHALATION) 0.5 MG/2 ML NEB NEB SCH ×2 (05:46→22:50)
[2018-03-11] MEDS: Ensure Enlive Strawberry 8oz Bottle PO SCH ×3 (08:12→18:25)
[2018-03-11] MEDS: LORATADINE 10 MG TAB PO SCH (10:03)
[2018-03-11] MEDS: MULTIPLE VITAMIN TAB PO SCH (10:03)
[2018-03-11] MEDS: cefTRIAXone 1GM/10ml IVPUSH 10 ML IV SCH (10:03)
[2018-03-11] MEDS: ASPirin-EC 81 mg tab PO SCH (10:03)
[2018-03-11] MEDS: METOPROLOL SUCCINATE XL 50 MG TAB PO SCH (10:03)
[2018-03-11] MEDS: ATORVASTATIN 20 MG TAB PO SCH (21:45)
[2018-03-12 05:00] VITALS: BP 124/89
[2018-03-12] MEDS: SODIUM CHLOR 0.9% PF (SALINE LOCK) 10ML VIAL/SYR IV SCH ×3 (06:00→21:55)
[2018-03-12] MEDS: ALBUTEROL SULF 2.5 MG/0.5ML(0.5%) NEB SOLN NEB SCH ×3 (06:26→22:02)
[2018-03-12] MEDS: BUDESONIDE (INHALATION) 0.5 MG/2 ML NEB NEB SCH ×2 (06:26→22:02)
[2018-03-12] MEDS: Ensure Enlive Strawberry 8oz Bottle PO SCH ×3 (08:49→18:47)
[2018-03-12 09:00] VITALS: BP 146/92
[2018-03-12] MEDS: cefTRIAXone 1GM/10ml IVPUSH 10 ML IV SCH (09:01)
[2018-03-12] MEDS: ASPirin-EC 81 mg tab PO SCH (10:19)
[2018-03-12] MEDS: METOPROLOL SUCCINATE XL 50 MG TAB PO SCH (10:20)
[2018-03-12] MEDS: MULTIPLE VITAMIN TAB PO SCH (10:20)
[2018-03-12] MEDS: LORATADINE 10 MG TAB PO SCH (10:21)
[2018-03-12] MEDS: MECLIZINE HCL 25 MG TAB PO SCH ×3 (11:21→21:51)
[2018-03-12 13:00] VITALS: BP 140/99
[2018-03-12 17:00] VITALS: BP 115/76
[2018-03-12] MEDS: ATORVASTATIN 20 MG TAB PO SCH (21:51)
[2018-03-12 22:00] VITALS: BP 114/79
[2018-03-13 04:57] VITALS: BP 125/99
[2018-03-13] MEDS: MECLIZINE HCL 25 MG TAB PO SCH ×2 (06:09→13:26)
[2018-03-13] MEDS: ALBUTEROL SULF 2.5 MG/0.5ML(0.5%) NEB SOLN NEB SCH ×2 (06:09→13:48)
[2018-03-13] MEDS: BUDESONIDE (INHALATION) 0.5 MG/2 ML NEB NEB SCH (06:09)
[2018-03-13] MEDS: SODIUM CHLOR 0.9% PF (SALINE LOCK) 10ML VIAL/SYR IV SCH ×2 (06:12→13:26)
[2018-03-13] MEDS: Ensure Enlive Strawberry 8oz Bottle PO SCH ×2 (08:00→12:01)
[2018-03-13 09:00] VITALS: BP 123/86
[2018-03-13] MEDS: ASPirin-EC 81 mg tab PO SCH (10:05)
[2018-03-13] MEDS: cefTRIAXone 1GM/10ml IVPUSH 10 ML IV SCH (10:05)
[2018-03-13] MEDS: MULTIPLE VITAMIN TAB PO SCH (10:05)
[2018-03-13] MEDS: LORATADINE 10 MG TAB PO SCH (10:06)
[2018-03-13] MEDS: METOPROLOL SUCCINATE XL 50 MG TAB PO SCH (10:06)
[2018-03-13] MEDS ORDERED: GADOPENTETATE DIMEGLUMINE (10MMOL/20 ML) VIAL IV ONE (10:15)
[2018-03-15] MEDS ORDERED: MET50T PO (11:08)
[2018-03-15] MEDS ORDERED: ASPI81TA27 PO (11:15)
== END 2018-03-13 13:15 | disposition home or self-care (01) | DRG 312 ==
LOC: EDBD 15:37 → ER 15:39 → TELE 15:40 → TELE-CENTR 19:45
PROVIDERS: ADMIT Internal Medicine; ATTEND Family Medicine
DX: R55 Syncope and collapse (principal); E44.0 Moderate protein-calorie malnutrition; E87.0 Hyperosmolality and hypernatremia; N39.0 Urinary tract infection, site not specified; Z68.1 Body mass index [BMI] 19.9 or less, adult; I25.9 Chronic ischemic heart disease, unspecified; E03.2 Hypothyroidism due to medicaments and other exogenous substances; E05.90 Thyrotoxicosis, unspecified without thyrotoxic crisis or storm; E83.51 Hypocalcemia; K21.9 Gastro-esophageal reflux disease without esophagitis; I12.9 Hypertensive chronic kidney disease with stage 1 through stage 4 chronic kidney disease, or unspecified chronic kidney disease; T39.1X5A Adverse effect of 4-Aminophenol derivatives, initial encounter; M41.9 Scoliosis, unspecified; M51.26 Other intervertebral disc displacement, lumbar region; N18.2 Chronic kidney disease, stage 2 (mild); Q85.01 Neurofibromatosis, type 1; Z79.82 Long term (current) use of aspirin; Z79.899 Other long term (current) drug therapy; Z82.49 Family history of ischemic heart disease and other diseases of the circulatory system; Z85.3 Personal history of malignant neoplasm of breast; Z90.10 Acquired absence of unspecified breast and nipple; Z98.82 Breast implant status; Z88.8 Allergy status to other drugs, medicaments and biological substances; Y92.89 Other specified places as the place of occurrence of the external cause; Z86.73 Personal history of transient ischemic attack (TIA), and cerebral infarction without residual deficits
CPT/HCPCS: 36415; 70450; 70553; 71046; 72148; 80053; 80307; 81001; 83735; 84443; 84484; 85025; 87040; 87086; 93005; 93306; 93886; 94640; 95819; 96361; 96374; 97116; J0696; J2405

== ENCOUNTER → 2018-03-15 | Outpatient (CLI) | payer MEDICAID, OTHER ==
[~2018-03-15] VITALS: Ht 165.1 cm; Wt 41.3 kg
[~2018-03-15] MED LIST changes: +ASPI81TA27 PO; +ATOR20TA PO; +FUR20T PO; +POTA1TAB61 PO; +SILD20TA PO
[2018-03-15 12:56] LABS: INR 1.27 (0.9-1.15); Partial Thromboplastin Time 30.8 sec (23.78-33.04); Prothrombin Time 13.4 sec (9.27-12.13)
[2018-03-15 13:40] LABS: Albumin 3.2 g/dL (3.4-5.0); Bilirubin, Total 0.6 mg/dL (0.2-1.0); Calcium 8.6 mg/dL (8.5-10.1); Potassium 3.8 mmol/L (3.5-5.1); Total Protein 7.5 g/dL (6.4-8.2)
== END | disposition home or self-care (01) ==
LOC: LAB 08:00 → EDSTATUS 03-20 07:00
PROVIDERS: ATTEND Plastic Surgery
DX: Z01.818 Encounter for other preprocedural examination (principal); Z90.13 Acquired absence of bilateral breasts and nipples
CPT/HCPCS: 36415; 80053; 85610; 85730

== ENCOUNTER → 2018-03-15 | Outpatient (CLI) | payer OTHER ==
[~2018-03-15] MED LIST changes: -FUR20T PO; -POTA1TAB61 PO; -SILD20TA PO
[2018-03-15 12:45] LABS: Basophils # (auto) 0.3 uL; Basophils % (auto) 3.5 % (0.0-2.0); Eosinophils # (auto) 0 uL; Eosinophils % (auto) 0.3 % (0.0-7.0); Hematocrit 43.4 % (36.0-46.0); Lymphocytes # (auto) 1.6 uL; Mean Corpuscular Hemoglobin 29.7 pg (28.0-32.0); Mean Corpuscular Hgb Conc. 32.4 g/dL (32.0-36.0); Mean Corpuscular Volume 91.5 fL (80.0-100.0); Monocytes # (auto) 0.8 uL; Neutrophils # (auto) 5.5 uL; Neutrophils % (auto) 67.2 % (37.0-80.0); Nucleated Red Blood Cells % 0.3 %; Platelet Count (auto) 263 10^3/uL (140-450); Red Blood Cells 4.74 10^6/uL (4.0-5.20); Red Cell Distribution Width 16.7 % (11.8-14.3); White Blood Cell 8.2 10^3/uL (4.4-10.8)
[2018-03-15 13:26] LABS: Albumin 3.2 g/dL (3.4-5.0); Potassium 3.9 mmol/L (3.5-5.1); Total Protein 7.5 g/dL (6.4-8.2)
[2018-03-15 13:46] LABS: BUN/Creatinine Ratio 24.1
[2018-03-15 13:47] LABS: Bilirubin, Total 0.7 mg/dL (0.2-1.0); Calcium 8.6 mg/dL (8.5-10.1)
[2018-03-18 10:23] LABS: Urine Bacteria NONE SEEN /hpf (None Seen); Urine Blood Negative /uL (Negative); Urine Mucus FEW (None Seen); Urine Specific Gravity 1.032 (1.001-1.035); Urine WBC 4 /hpf (0 - 5)
== END | disposition home or self-care (01) ==
LOC: LAB 11:18
PROVIDERS: ATTEND Internal Medicine
DX: Z01.818 Encounter for other preprocedural examination (principal); I10 Essential (primary) hypertension; E03.9 Hypothyroidism, unspecified
CPT/HCPCS: 36415; 80053; 80061; 81001; 82043; 84439; 84443; 85025; 85652

== ENCOUNTER 2018-03-18 20:04 | Inpatient (IN) | payer OTHER ==
[~2018-03-18] VITALS: Ht 165.1 cm; Wt 49.6 kg
[~2018-03-18 20:04] MED LIST changes: -ATOR20TA PO; -FUR20T PO; -POTA1TAB61 PO; -SILD20TA PO
[2018-03-18] MEDS ORDERED: IOHEXOL 350 MG/ML 100ML IJ ONE (20:29)
[2018-03-18] MEDS ORDERED: ALBUTEROL SULF 2.5 MG/0.5ML(0.5%) NEB SOLN ONE (20:47)
[2018-03-18] MEDS ORDERED: IPRATROPIUM BROM 0.5 MG/2.5ML INH SOL ONE (20:47)
[2018-03-18] MEDS ORDERED: IPRATROPIUM BROM 0.5 MG/2.5ML INH SOL NEB ONE (21:00)
[2018-03-18] MEDS ORDERED: ALBUTEROL SULF 2.5 MG/0.5ML(0.5%) NEB SOLN NEB ONE (21:00)
[2018-03-19 03:10] LABS: Basophils # (auto) 0.1 uL; Basophils % (auto) 0.9 % (0.0-2.0); Eosinophils # (auto) 0.1 uL; Eosinophils % (auto) 0.7 % (0.0-7.0); Hematocrit 45.1 % (36.0-46.0); Hemoglobin 14.7 g/dL (12.2-16.2); Lymphocytes # (auto) 2.5 uL; Lymphocytes % (auto) 23.3 % (10.0-50.0); Mean Corpuscular Hemoglobin 29.7 pg (28.0-32.0); Mean Corpuscular Hgb Conc. 32.6 g/dL (32.0-36.0); Mean Corpuscular Volume 91.2 fL (80.0-100.0); Monocytes # (auto) 0.9 uL; Monocytes % (auto) 8.8 % (0.0-12.0); Neutrophils % (auto) 66.3 % (37.0-80.0); Nucleated Red Blood Cells % 0.5 %; Platelet Count (auto) 268 10^3/uL (140-450); Red Blood Cells 4.95 10^6/uL (4.0-5.20); Red Cell Distribution Width 16.8 % (11.8-14.3); White Blood Cell 10.6 10^3/uL (4.4-10.8)
[2018-03-19 03:40] LABS: Albumin 3.3 g/dL (3.4-5.0); BUN/Creatinine Ratio 19.8; Calcium 8.7 mg/dL (8.5-10.1); Potassium 3.4 mmol/L (3.5-5.1)
[2018-03-19 03:42] LABS: Bilirubin, Total 0.8 mg/dL (0.2-1.0); Total Protein 7.3 g/dL (6.4-8.2)
[2018-03-19] MEDS ORDERED: ACETAMINOPHEN 500 MG TAB PO PRN (04:00)
[2018-03-19] MEDS ORDERED: ONDANSETRON HCL 4 MG/2 ML VIAL IV PRN (04:00)
[2018-03-19] MEDS ORDERED: HYDROcodone-ACET 5/325MG TAB PO PRN (04:00)
[2018-03-19] MEDS ORDERED: METOPROLOL TARTRATE 25 MG TAB PO PRN (06:45)
[2018-03-19] MEDS ORDERED: POTASSIUM CHL 20 Meq TABLET PO ONE ×2 (06:45)
[2018-03-19] MEDS ORDERED: LORazepam 0.5 MG TAB PO PRN (06:45)
[2018-03-19] MEDS: ALBUTEROL SULF 2.5 MG/0.5ML(0.5%) NEB SOLN NEB SCH ×4 (07:29→23:54)
[2018-03-19] MEDS: IPRATROPIUM BROM 0.5 MG/2.5ML INH SOL NEB SCH ×4 (07:29→23:54)
[2018-03-19] MEDS: LEVOTHYROXINE SODIUM 25 MCG TAB PO SCH (07:35)
[2018-03-19 09:40] VITALS: BP 148/98
[2018-03-19] MEDS: ASPirin-EC 81 mg tab PO SCH (09:50)
[2018-03-19] MEDS: HCTZ 25 MG TAB PO SCH (09:51)
[2018-03-19] MEDS: LISINOPRIL 10 MG TAB PO SCH (09:51)
[2018-03-19] MEDS ORDERED: ATOR20TA PO (09:52)
[2018-03-19 11:11] VITALS: BP 148/98
[2018-03-19 11:41] VITALS: BP 139/88
[2018-03-19] MEDS ORDERED: cefTRIAXone 1GM/10ml IVPUSH 10 ML IV ONE (13:45)
[2018-03-19 17:28] VITALS: BP 127/81
[2018-03-19 22:05] VITALS: BP 148/96
[2018-03-19] MEDS ORDERED: HYDROCORTISONE ACET 25 MG RECTAL SUPP PR ONE (23:30)
[2018-03-20 04:40] VITALS: BP 127/79
[2018-03-20] MEDS: LEVOTHYROXINE SODIUM 25 MCG TAB PO SCH (06:09)
[2018-03-20] MEDS: ALBUTEROL SULF 2.5 MG/0.5ML(0.5%) NEB SOLN NEB SCH ×2 (07:20→13:26)
[2018-03-20] MEDS: IPRATROPIUM BROM 0.5 MG/2.5ML INH SOL NEB SCH ×2 (07:20→13:26)
[2018-03-20 08:14] VITALS: BP 142/97
[2018-03-20] MEDS ORDERED: cefTRIAXone 1GM/10ml IVPUSH 10 ML IV SCH (09:00)
[2018-03-20] MEDS: ASPirin-EC 81 mg tab PO SCH (09:11)
[2018-03-20] MEDS: LISINOPRIL 10 MG TAB PO SCH (09:11)
[2018-03-20] MEDS: HCTZ 25 MG TAB PO SCH (09:12)
[2018-03-20 12:08] VITALS: BP 138/95
[2018-03-20 14:25] VITALS: BP 142/97
[2018-03-20 16:53] VITALS: BP 151/100
[2018-04-09] MEDS ORDERED: POTA1TAB61 PO (13:59)
[2018-04-09] MEDS ORDERED: SILD20TA PO (13:59)
[2018-04-09] MEDS ORDERED: FUR20T PO (13:59)
== END 2018-03-20 17:21 | disposition home or self-care (01) | DRG 195 ==
LOC: ER 20:04 → TELE 20:05 → TELE-WESTW 03-19 08:28
PROVIDERS: ADMIT Nurse Practitioner Family; ATTEND Family Medicine
DX: J18.9 Pneumonia, unspecified organism (principal); R06.03 Acute respiratory distress; E03.9 Hypothyroidism, unspecified; E87.6 Hypokalemia; F41.9 Anxiety disorder, unspecified; I12.9 Hypertensive chronic kidney disease with stage 1 through stage 4 chronic kidney disease, or unspecified chronic kidney disease; I27.21 Secondary pulmonary arterial hypertension; J47.9 Bronchiectasis, uncomplicated; R09.02 Hypoxemia; N18.9 Chronic kidney disease, unspecified; Z86.73 Personal history of transient ischemic attack (TIA), and cerebral infarction without residual deficits; Z85.3 Personal history of malignant neoplasm of breast
CPT/HCPCS: 36415; 36600; 71275; 80053; 82805; 83880; 84484; 85025; 87077; 87081; 87186; 87205; 93005; 94640; 96374; 99291; J0696

== ENCOUNTER → 2018-03-18 | Outpatient (CLI) | payer OTHER ==
[~2018-03-18] MED LIST changes: +FUR20T PO; -HYDR12.56 PO; +POTA1TAB61 PO; +SILD20TA PO
[2018-03-18 13:08] LABS: Basophils # (auto) 0.1 uL; Basophils % (auto) 0.9 % (0.0-2.0); Eosinophils # (auto) 0 uL; Eosinophils % (auto) 0.5 % (0.0-7.0); Hematocrit 43.3 % (36.0-46.0); Hemoglobin 14.4 g/dL (12.2-16.2); Lymphocytes # (auto) 1.7 uL; Lymphocytes % (auto) 17.2 % (10.0-50.0); Mean Corpuscular Hgb Conc. 33.2 g/dL (32.0-36.0); Mean Corpuscular Volume 90.4 fL (80.0-100.0); Monocytes # (auto) 0.7 uL; Monocytes % (auto) 7.6 % (0.0-12.0); Neutrophils # (auto) 7.2 uL; Neutrophils % (auto) 73.8 % (37.0-80.0); Nucleated Red Blood Cells % 0.4 %; Platelet Count (auto) 240 10^3/uL (140-450); Red Blood Cells 4.79 10^6/uL (4.0-5.20); Red Cell Distribution Width 16.2 % (11.8-14.3); White Blood Cell 9.8 10^3/uL (4.4-10.8)
[2018-03-18 13:09] LABS: INR 1.18 (0.9-1.15); Partial Thromboplastin Time 29.2 sec (23.78-33.04); Prothrombin Time 12.5 sec (9.27-12.13)
[2018-03-18 13:19] LABS: Alanine Aminotransferase 21 U/L (13-56); Albumin 3.2 g/dL (3.4-5.0); Anion Gap 12 (5-15); Aspartate Aminotransferase 12 U/L (15-37); BUN/Creatinine Ratio 20.2; Blood Urea Nitrogen 21 mg/dL (7-18); Calcium 8.2 mg/dL (8.5-10.1); Carbon Dioxide 19 mmol/L (21-32); Chloride 113 mmol/L (98-107); GFR African American 68 mL/min; GFR Non-African American 56 mL/min; Glucose 94 mg/dL (74-106); Potassium 3.4 mmol/L (3.5-5.1); Sodium 144 mmol/L (136-145)
[2018-03-18 13:23] LABS: Alkaline Phosphatase 90 U/L (45-117); Bilirubin, Total 0.7 mg/dL (0.2-1.0); Total Protein 7.1 g/dL (6.4-8.2)
== END | disposition home or self-care (01) ==
LOC: LAB 12:12
PROVIDERS: ATTEND Internal Medicine
DX: Z01.818 Encounter for other preprocedural examination (principal); I10 Essential (primary) hypertension; E03.9 Hypothyroidism, unspecified; K21.9 Gastro-esophageal reflux disease without esophagitis
CPT/HCPCS: 36415; 80053; 84439; 84443; 84484; 85025; 85379; 85610; 85730

== ENCOUNTER 2018-04-02 15:21 | Inpatient (IN) | payer OTHER ==
[~2018-04-02] VITALS: Ht 165.1 cm; Wt 44.6 kg
[~2018-04-02 15:21] MED LIST changes: +ATOR20TA PO
[2018-04-02] MEDS ORDERED: METOPROLOL TARTRATE 50 MG TAB PO ONE (17:00)
[2018-04-02 17:01] LABS: Basophils # (auto) 0.2 uL; Basophils % (auto) 2.2 % (0.0-2.0); Eosinophils # (auto) 0.1 uL; Eosinophils % (auto) 1.9 % (0.0-7.0); Hematocrit 48.3 % (36.0-46.0); Hemoglobin 15.3 g/dL (12.2-16.2); Lymphocytes # (auto) 1.7 uL; Lymphocytes % (auto) 23.5 % (10.0-50.0); Mean Corpuscular Hgb Conc. 31.6 g/dL (32.0-36.0); Mean Corpuscular Volume 91.9 fL (80.0-100.0); Monocytes # (auto) 0.8 uL; Monocytes % (auto) 11.2 % (0.0-12.0); Neutrophils # (auto) 4.4 uL; Neutrophils % (auto) 61.2 % (37.0-80.0); Nucleated Red Blood Cells % 0.3 %; Platelet Count (auto) 299 10^3/uL (140-450); Red Blood Cells 5.26 10^6/uL (4.0-5.20); Red Cell Distribution Width 16.7 % (11.8-14.3); White Blood Cell 7.1 10^3/uL (4.4-10.8)
[2018-04-02 17:44] LABS: BUN/Creatinine Ratio 14.4; Bilirubin, Total 0.7 mg/dL (0.2-1.0); Calcium 8.3 mg/dL (8.5-10.1); Magnesium 1.9 mg/dL (1.6-2.6); Potassium 3.3 mmol/L (3.5-5.1)
[2018-04-02] MEDS ORDERED: HYDROcodone-ACET 10/325MG TAB PO ONE (17:45)
[2018-04-02] MEDS ORDERED: POTASSIUM CHL 20 Meq TABLET PO ONE ×2 (19:00→23:30)
[2018-04-02 22:38] LABS: Urine Bacteria NONE SEEN /hpf (None Seen); Urine Blood TRACE /uL (Negative); Urine Mucus FEW (None Seen); Urine Specific Gravity 1.028 (1.001-1.035); Urine WBC 52 /hpf (0 - 5)
[2018-04-02] MEDS ORDERED: DOCUSATE SOD 100 MG CAP PO PRN (23:30)
[2018-04-02] MEDS ORDERED: ACETAMINOPHEN 500 MG TAB PO PRN (23:30)
[2018-04-02] MEDS ORDERED: TEMAZEPAM 15 MG CAP PO PRN (23:30)
[2018-04-02] MEDS ORDERED: FUROSEMIDE 20 MG/2 ML VIAL IV ONE (23:30)
[2018-04-02] MEDS ORDERED: ALBUTEROL SULF 2.5 MG/0.5ML(0.5%) NEB SOLN NEB PRN (23:30)
[2018-04-02 23:35] VITALS: BP 117/82
[2018-04-02] MEDS ORDERED: cefTRIAXone 1GM/10ml IVPUSH 10 ML IV ONE (23:45)
[2018-04-03] VITALS (8 sets, daily range): BP systolic 101–144; BP diastolic 74–105
[2018-04-03] MEDS: HYDROcodone-ACET 10/325MG TAB PO PRN (02:25)
[2018-04-03] MEDS: LEVOTHYROXINE SODIUM 25 MCG TAB PO SCH (06:10)
[2018-04-03 06:30] LABS: Basophils # (auto) 0 uL; Basophils % (auto) 0.3 % (0.0-2.0); Eosinophils # (auto) 0.2 uL; Eosinophils % (auto) 2.2 % (0.0-7.0); Hematocrit 44.8 % (36.0-46.0); Hemoglobin 14.3 g/dL (12.2-16.2); Lymphocytes # (auto) 1.9 uL; Lymphocytes % (auto) 26.4 % (10.0-50.0); Mean Corpuscular Hemoglobin 29.7 pg (28.0-32.0); Monocytes # (auto) 0.8 uL; Monocytes % (auto) 10.4 % (0.0-12.0); Neutrophils # (auto) 4.4 uL; Neutrophils % (auto) 60.7 % (37.0-80.0); Nucleated Red Blood Cells % 0.5 %; Platelet Count (auto) 265 10^3/uL (140-450); Red Blood Cells 4.82 10^6/uL (4.0-5.20); Red Cell Distribution Width 17.1 % (11.8-14.3); White Blood Cell 7.3 10^3/uL (4.4-10.8)
[2018-04-03 07:01] LABS: BUN/Creatinine Ratio 22.6; Calcium 7.9 mg/dL (8.5-10.1); Potassium 3.9 mmol/L (3.5-5.1)
[2018-04-03] MEDS: cefTRIAXone 1GM/10ml IVPUSH 10 ML IV SCH (09:48)
[2018-04-03] MEDS ORDERED: HCTZ 25 MG TAB PO SCH (10:00)
[2018-04-03] MEDS: ASPirin-EC 81 mg tab PO SCH (10:52)
[2018-04-03] MEDS: ATORVASTATIN 20 MG TAB PO SCH (21:09)
[2018-04-03] MEDS: METOPROLOL TARTRATE 25 MG TAB PO SCH (21:10)
[2018-04-04 05:00] VITALS: BP 113/83
[2018-04-04] MEDS: LEVOTHYROXINE SODIUM 25 MCG TAB PO SCH (06:08)
[2018-04-04 07:09] LABS: Anion Gap 11 (5-15); BUN/Creatinine Ratio 29.7; Blood Urea Nitrogen 27 mg/dL (7-18); Calcium 7.9 mg/dL (8.5-10.1); Carbon Dioxide 19 mmol/L (21-32); Chloride 114 mmol/L (98-107); GFR African American 80 mL/min; GFR Non-African American 66 mL/min; Glucose 76 mg/dL (74-106); Magnesium 1.7 mg/dL (1.6-2.6); Potassium 4.2 mmol/L (3.5-5.1); Sodium 144 mmol/L (136-145)
[2018-04-04 08:00] VITALS: BP 130/99
[2018-04-04] MEDS: cefTRIAXone 1GM/10ml IVPUSH 10 ML IV SCH (08:35)
[2018-04-04] MEDS: HYDROcodone-ACET 10/325MG TAB PO PRN (08:46)
[2018-04-04 09:00] VITALS: BP 130/99
[2018-04-04] MEDS: ASPirin-EC 81 mg tab PO SCH (10:10)
[2018-04-04] MEDS: METOPROLOL TARTRATE 25 MG TAB PO SCH ×2 (10:11→21:16)
[2018-04-04] MEDS: FUROSEMIDE 20 MG/2 ML VIAL IV SCH (10:11)
[2018-04-04] MEDS ORDERED: MAGNESIUM SULFATE 1GM/100ML 100 ML IV ONE (10:15)
[2018-04-04 13:00] VITALS: BP 120/91
[2018-04-04 17:00] VITALS: BP 122/90
[2018-04-04] MEDS: Ensure Enlive Strawberry 8oz Bottle PO SCH (18:28)
[2018-04-04] MEDS: ATORVASTATIN 20 MG TAB PO SCH (21:17)
[2018-04-04] MEDS: ASCORBIC ACID 500 MG TAB PO SCH (21:17)
[2018-04-04 22:00] VITALS: BP 115/90
[2018-04-05 05:00] VITALS: BP 121/94
[2018-04-05] MEDS: LEVOTHYROXINE SODIUM 25 MCG TAB PO SCH (07:34)
[2018-04-05] MEDS: Ensure Enlive Strawberry 8oz Bottle PO SCH ×3 (08:00→18:00)
[2018-04-05 09:12] VITALS: BP 146/98
[2018-04-05] MEDS: FUROSEMIDE 20 MG/2 ML VIAL IV SCH (10:00)
[2018-04-05] MEDS: ASCORBIC ACID 500 MG TAB PO SCH ×2 (10:01→21:31)
[2018-04-05] MEDS: ASPirin-EC 81 mg tab PO SCH (10:01)
[2018-04-05] MEDS: MULTIPLE VITAMIN TAB PO SCH (10:01)
[2018-04-05] MEDS: cefTRIAXone 1GM/10ml IVPUSH 10 ML IV SCH (10:01)
[2018-04-05] MEDS: METOPROLOL TARTRATE 25 MG TAB PO SCH ×2 (10:02→21:39)
[2018-04-05 10:17] LABS: INR 1.12 (0.9-1.15); Partial Thromboplastin Time 29.3 sec (23.78-33.04); Prothrombin Time 11.9 sec (9.27-12.13)
[2018-04-05 10:28] LABS: BUN/Creatinine Ratio 38.8; Calcium 8.2 mg/dL (8.5-10.1)
[2018-04-05] MEDS ORDERED: LIDOCAINE 2% (LOCAL ANESTH.) PF 5ml SDV ONE (10:28)
[2018-04-05] MEDS ORDERED: IODIXANOL 320MG/ML 100ML BTL IV ONE (10:29)
[2018-04-05] MEDS ORDERED: fentaNYL CITRATE 100 MCG/2 ML VL ONE (13:05)
[2018-04-05] MEDS ORDERED: MIDAZOLAM HCL 1MG/1ML-2 ML VIAL ONE (13:05)
[2018-04-05] MEDS ORDERED: ANGIOMAX 250 MG VIAL IV ONE (13:06)
[2018-04-05] MEDS ORDERED: SODIUM CHL 0.9% 0 ML ONE (13:06)
[2018-04-05] MEDS: HYDROcodone-ACET 10/325MG TAB PO PRN (19:09)
[2018-04-05] MEDS: ATORVASTATIN 20 MG TAB PO SCH (21:31)
[2018-04-05] MEDS: SILDENAFIL CITRATE 20 MG TAB PO SCH (21:31)
[2018-04-05 22:00] VITALS: BP 118/87
[2018-04-05 22:09] VITALS: BP 118/87
[2018-04-06 05:00] VITALS: BP 126/85
[2018-04-06] MEDS: LEVOTHYROXINE SODIUM 25 MCG TAB PO SCH (06:26)
[2018-04-06 07:52] LABS: BUN/Creatinine Ratio 41.1; Calcium 8.4 mg/dL (8.5-10.1); Potassium 3.9 mmol/L (3.5-5.1)
[2018-04-06 08:01] LABS: Basophils # (auto) 0.1 uL; Eosinophils # (auto) 0.2 uL; Hematocrit 45.2 % (36.0-46.0); Hemoglobin 14.5 g/dL (12.2-16.2); Lymphocytes # (auto) 2.1 uL; Lymphocytes % (auto) 31.5 % (10.0-50.0); Mean Corpuscular Hemoglobin 30.1 pg (28.0-32.0); Monocytes # (auto) 0.7 uL; Monocytes % (auto) 10.1 % (0.0-12.0); Neutrophils # (auto) 3.7 uL; Neutrophils % (auto) 54.4 % (37.0-80.0); Nucleated Red Blood Cells % 0.2 %; Platelet Count (auto) 206 10^3/uL (140-450); Red Blood Cells 4.81 10^6/uL (4.0-5.20); Red Cell Distribution Width 16.8 % (11.8-14.3); White Blood Cell 6.8 10^3/uL (4.4-10.8)
[2018-04-06] MEDS: SILDENAFIL CITRATE 20 MG TAB PO SCH ×3 (08:19→20:01)
[2018-04-06] MEDS: Ensure Enlive Strawberry 8oz Bottle PO SCH ×3 (08:21→18:22)
[2018-04-06 09:00] VITALS: BP 134/93
[2018-04-06] MEDS: ASCORBIC ACID 500 MG TAB PO SCH ×2 (10:07→21:52)
[2018-04-06] MEDS: FUROSEMIDE 20 MG TAB PO SCH (10:07)
[2018-04-06] MEDS: ASPirin-EC 81 mg tab PO SCH (10:07)
[2018-04-06] MEDS: MULTIPLE VITAMIN TAB PO SCH (10:07)
[2018-04-06] MEDS: METOPROLOL TARTRATE 25 MG TAB PO SCH ×2 (10:08→21:52)
[2018-04-06 13:00] VITALS: BP 137/102
[2018-04-06] MEDS ORDERED: LACTULOSE 20Gm/30ML SOLN PO ONE (15:00)
[2018-04-06 17:00] VITALS: BP 123/90
[2018-04-06] MEDS: ATORVASTATIN 20 MG TAB PO SCH (21:51)
[2018-04-07 05:00] VITALS: BP 147/86
[2018-04-07] MEDS: LEVOTHYROXINE SODIUM 25 MCG TAB PO SCH (06:04)
[2018-04-07] MEDS: SILDENAFIL CITRATE 20 MG TAB PO SCH ×3 (07:54→23:56)
[2018-04-07] MEDS: Ensure Enlive Strawberry 8oz Bottle PO SCH ×3 (07:55→18:45)
[2018-04-07 09:00] VITALS: BP 134/92
[2018-04-07] MEDS: ASCORBIC ACID 500 MG TAB PO SCH ×2 (10:56→23:57)
[2018-04-07] MEDS: MULTIPLE VITAMIN TAB PO SCH (10:56)
[2018-04-07] MEDS: ASPirin-EC 81 mg tab PO SCH (10:56)
[2018-04-07] MEDS: FUROSEMIDE 20 MG TAB PO SCH (10:57)
[2018-04-07] MEDS: METOPROLOL TARTRATE 25 MG TAB PO SCH ×2 (10:57→23:57)
[2018-04-07 12:48] VITALS: BP 137/87
[2018-04-07] MEDS: HYDROcodone-ACET 10/325MG TAB PO PRN ×2 (14:44→23:57)
[2018-04-07 17:00] VITALS: BP 136/96
[2018-04-07 22:00] VITALS: BP 146/98
[2018-04-07] MEDS: ATORVASTATIN 20 MG TAB PO SCH (23:56)
[2018-04-08 05:00] VITALS: BP 125/94
[2018-04-08] MEDS: LEVOTHYROXINE SODIUM 25 MCG TAB PO SCH (06:59)
[2018-04-08] MEDS: SILDENAFIL CITRATE 20 MG TAB PO SCH ×3 (07:54→22:31)
[2018-04-08 08:16] VITALS: BP 129/97
[2018-04-08] MEDS: ASPirin-EC 81 mg tab PO SCH (09:23)
[2018-04-08] MEDS: Ensure Enlive Strawberry 8oz Bottle PO SCH ×3 (09:23→18:51)
[2018-04-08] MEDS: FUROSEMIDE 20 MG TAB PO SCH (09:24)
[2018-04-08] MEDS: MULTIPLE VITAMIN TAB PO SCH (09:24)
[2018-04-08] MEDS: METOPROLOL TARTRATE 25 MG TAB PO SCH ×2 (09:24→22:33)
[2018-04-08] MEDS: ASCORBIC ACID 500 MG TAB PO SCH ×2 (09:24→22:33)
[2018-04-08 13:00] VITALS: BP 145/104
[2018-04-08 16:59] VITALS: BP 136/99
[2018-04-08 22:00] VITALS: BP 107/65
[2018-04-08] MEDS: ATORVASTATIN 20 MG TAB PO SCH (22:31)
[2018-04-09 06:25] VITALS: BP 123/83
[2018-04-09 06:46] LABS: Calcium 8.1 mg/dL (8.5-10.1); Potassium 3.4 mmol/L (3.5-5.1)
[2018-04-09] MEDS: LEVOTHYROXINE SODIUM 25 MCG TAB PO SCH (06:46)
[2018-04-09] MEDS: HYDROcodone-ACET 10/325MG TAB PO PRN (06:47)
[2018-04-09] MEDS: FUROSEMIDE 20 MG TAB PO SCH (09:58)
[2018-04-09] MEDS: MULTIPLE VITAMIN TAB PO SCH (09:58)
[2018-04-09] MEDS: METOPROLOL TARTRATE 25 MG TAB PO SCH (09:59)
[2018-04-09] MEDS: ASPirin-EC 81 mg tab PO SCH (09:59)
[2018-04-09] MEDS: SILDENAFIL CITRATE 20 MG TAB PO SCH ×2 (09:59→14:43)
[2018-04-09] MEDS: Ensure Enlive Strawberry 8oz Bottle PO SCH ×2 (09:59→12:00)
[2018-04-09] MEDS: ASCORBIC ACID 500 MG TAB PO SCH (09:59)
[2018-04-09 10:04] VITALS: BP 131/83
[2018-04-09 12:38] VITALS: BP 113/79
[2018-04-09] MEDS ORDERED: POTA1TAB61 PO (13:59)
[2018-04-09] MEDS ORDERED: FUR20T PO (13:59)
[2018-04-09] MEDS ORDERED: SILD20TA PO (13:59)
[2018-04-09] MEDS ORDERED: POTASSIUM CHL 20 Meq TABLET PO ONE (14:00)
[2018-04-09 15:17] VITALS: BP 126/78
[2018-04-09 17:17] VITALS: BP 118/82
== END 2018-04-09 18:10 | disposition home health service (06) | DRG 286 ==
LOC: ER 15:23 → EAST 15:24 → TELE-EAST 04-03 02:11
PROVIDERS: ADMIT Nurse Practitioner Family; ATTEND Internal Medicine
PROC: 4A023N8 Measurement of Cardiac Sampling and Pressure, Bilateral, Percutaneous Approach (ICD-10-PCS; principal; 2018-04-05)
PROC: B2111ZZ Fluoroscopy of Multiple Coronary Arteries using Low Osmolar Contrast (ICD-10-PCS; 2018-04-05)
PROC: B2151ZZ Fluoroscopy of Left Heart using Low Osmolar Contrast (ICD-10-PCS; 2018-04-05)
DX: I27.0 Primary pulmonary hypertension (principal); I50.43 Acute on chronic combined systolic (congestive) and diastolic (congestive) heart failure; J96.00 Acute respiratory failure, unspecified whether with hypoxia or hypercapnia; N17.0 Acute kidney failure with tubular necrosis; N30.01 Acute cystitis with hematuria; E44.0 Moderate protein-calorie malnutrition; Z68.1 Body mass index [BMI] 19.9 or less, adult; E03.9 Hypothyroidism, unspecified; E78.5 Hyperlipidemia, unspecified; E87.6 Hypokalemia; Z85.3 Personal history of malignant neoplasm of breast; Z90.13 Acquired absence of bilateral breasts and nipples; Z92.21 Personal history of antineoplastic chemotherapy; Z98.82 Breast implant status; Z79.899 Other long term (current) drug therapy; Z79.82 Long term (current) use of aspirin; Z86.73 Personal history of transient ischemic attack (TIA), and cerebral infarction without residual deficits
CPT/HCPCS: 36415; 36600; 71046; 78582; 80048; 80053; 81001; 82805; 83735; 83880; 84484; 85025; 85379; 85610; 85730; 87081; 87086; 93005; 93460; 93566; 94640; 94761; 96374; 96375; 96376; 99152; A6257; C1751; C1769; J0696; J2001; J2250; Q9967

== ENCOUNTER 2018-04-25 03:21 | Inpatient (IN) | payer OTHER ==
[~2018-04-25] VITALS: Ht 165.1 cm; Wt 96.8 kg
[~2018-04-25 03:21] MED LIST changes: +FUR20T PO; +POTA1TAB61 PO; +SILD20TA PO
[2018-04-25] MEDS ORDERED: IPRATROPIUM BROM 0.5 MG/2.5ML INH SOL NEB ONE (04:45)
[2018-04-25] MEDS ORDERED: ALBUTEROL SULF 2.5 MG/0.5ML(0.5%) NEB SOLN NEB ONE (04:45)
[2018-04-25 04:49] LABS: Basophils # (auto) 0 uL; Basophils % (auto) 0.2 % (0.0-2.0); Eosinophils # (auto) 0.2 uL; Eosinophils % (auto) 3.1 % (0.0-7.0); Hematocrit 45.2 % (36.0-46.0); Hemoglobin 14.7 g/dL (12.2-16.2); Lymphocytes # (auto) 1.3 uL; Lymphocytes % (auto) 25.2 % (10.0-50.0); Mean Corpuscular Hemoglobin 30.2 pg (28.0-32.0); Mean Corpuscular Hgb Conc. 32.5 g/dL (32.0-36.0); Monocytes # (auto) 0.4 uL; Monocytes % (auto) 7.2 % (0.0-12.0); Neutrophils # (auto) 3.4 uL; Neutrophils % (auto) 64.3 % (37.0-80.0); Nucleated Red Blood Cells % 0.2 %; Platelet Count (auto) 214 10^3/uL (140-450); Red Blood Cells 4.85 10^6/uL (4.0-5.20); Red Cell Distribution Width 15.2 % (11.8-14.3); White Blood Cell 5.3 10^3/uL (4.4-10.8)
[2018-04-25 04:55] LABS: INR 1.09 (0.9-1.15); Partial Thromboplastin Time 23.3 sec (23.78-33.04); Prothrombin Time 11.6 sec (9.27-12.13)
[2018-04-25 04:59] LABS: Albumin 3.1 g/dL (3.4-5.0); Anion Gap 13 (5-15); BUN/Creatinine Ratio 18.9; Blood Urea Nitrogen 20 mg/dL (7-18); Calcium 8.2 mg/dL (8.5-10.1); Carbon Dioxide 18 mmol/L (21-32); Chloride 113 mmol/L (98-107); GFR African American 67 mL/min; GFR Non-African American 55 mL/min; Glucose 85 mg/dL (74-106); Magnesium 1.8 mg/dL (1.6-2.6); Potassium 4.4 mmol/L (3.5-5.1); Sodium 144 mmol/L (136-145)
[2018-04-25 05:08] LABS: Alanine Aminotransferase 15 U/L (13-56); Alkaline Phosphatase 72 U/L (45-117); Aspartate Aminotransferase 16 U/L (15-37); Bilirubin, Total 0.5 mg/dL (0.2-1.0)
[2018-04-25] MEDS ORDERED: FUROSEMIDE 20 MG/2 ML VIAL IV ONE (07:15)
[2018-04-25] MEDS ORDERED: HYDROcodone-ACET 5/325MG TAB PO ONE (08:00)
[2018-04-25] MEDS ORDERED: LACTULOSE 20Gm/30ML SOLN PO PRN (08:15)
[2018-04-25] MEDS ORDERED: NITROGLYCERIN 0.4 MG SL TAB SL PRN (08:15)
[2018-04-25] MEDS ORDERED: ONDANSETRON HCL 4 MG/2 ML VIAL IV PRN (08:15)
[2018-04-25] MEDS ORDERED: LORazepam 0.5 MG TAB PO PRN (08:15)
[2018-04-25] MEDS ORDERED: ACETAMINOPHEN 500 MG TAB PO PRN (08:15)
[2018-04-25] MEDS ORDERED: TEMAZEPAM 15 MG CAP PO PRN (08:15)
[2018-04-25] MEDS ORDERED: HYDROcodone-ACET 5/325MG TAB PO PRN (08:15)
[2018-04-25] MEDS ORDERED: MORPHINE SULFATE 4 MG/ML SYR/VIAL IV PRN ×2 (08:15)
[2018-04-25 08:30] LABS: Urine Bacteria NONE SEEN /hpf (None Seen); Urine Blood Negative /uL (Negative); Urine Mucus FEW (None Seen); Urine Specific Gravity 1.021 (1.001-1.035); Urine WBC 1 /hpf (0 - 5)
[2018-04-25 09:20] VITALS: BP 142/102
[2018-04-25] MEDS ORDERED: ENOXAPARIN SOD 40 MG/0.4 ML SYRINGE SC SCH (10:00)
[2018-04-25] MEDS ORDERED: ENALAPRIL MALEATE 2.5 MG TAB PO SCH (10:00)
[2018-04-25] MEDS: ENOXAPARIN SOD 40 MG/0.4 ML SYRINGE SC SCH (10:00)
[2018-04-25] MEDS ORDERED: CARVEDILOL 3.125 MG TAB PO SCH (10:00)
[2018-04-25] MEDS: FUROSEMIDE 40 MG/4 ML VIAL IV SCH (10:41)
[2018-04-25] MEDS: SILDENAFIL CITRATE 20 MG TAB PO SCH ×3 (10:42→22:15)
[2018-04-25] MEDS: LEVOTHYROXINE SODIUM 50 MCG TAB PO SCH (10:42)
[2018-04-25] MEDS: PANTOPRAZOLE 40 MG TAB PO SCH (10:43)
[2018-04-25] MEDS: ASPirin 81 mg TAB PO SCH (10:43)
[2018-04-25] MEDS: POTASSIUM CHL 20 Meq TABLET PO SCH (10:43)
[2018-04-25] MEDS: NITROGLYCERIN 0.2MG/HR TOPICAL PATCH TD SCH (10:45)
[2018-04-25 12:27] VITALS: BP 125/90
[2018-04-25] MEDS: SODIUM CHLOR 0.9% PF (SALINE LOCK) 10ML VIAL/SYR IV SCH ×2 (14:27→22:16)
[2018-04-25 17:00] VITALS: BP 160/102
[2018-04-25 22:04] VITALS: BP 144/97
[2018-04-25] MEDS: CARVEDILOL 12.5 MG TAB PO SCH (22:15)
[2018-04-25] MEDS: ATORVASTATIN 20 MG TAB PO SCH (22:16)
[2018-04-26 04:35] VITALS: BP 92/59
[2018-04-26] MEDS: SILDENAFIL CITRATE 20 MG TAB PO SCH ×3 (05:58→21:57)
[2018-04-26] MEDS: SODIUM CHLOR 0.9% PF (SALINE LOCK) 10ML VIAL/SYR IV SCH ×3 (05:58→22:06)
[2018-04-26 07:02] LABS: Potassium 3.8 mmol/L (3.5-5.1)
[2018-04-26 07:13] LABS: Albumin 2.5 g/dL (3.4-5.0); BUN/Creatinine Ratio 27.1; Bilirubin, Total 0.4 mg/dL (0.2-1.0); Calcium 8.4 mg/dL (8.5-10.1); Total Protein 5.8 g/dL (6.4-8.2)
[2018-04-26 09:00] VITALS: BP 81/56
[2018-04-26] MEDS: CARVEDILOL 12.5 MG TAB PO SCH ×2 (10:00→21:57)
[2018-04-26] MEDS: ENOXAPARIN SOD 40 MG/0.4 ML SYRINGE SC SCH (10:55)
[2018-04-26] MEDS: FUROSEMIDE 40 MG/4 ML VIAL IV SCH (10:56)
[2018-04-26] MEDS: POTASSIUM CHL 20 Meq TABLET PO SCH (10:56)
[2018-04-26] MEDS: ASPirin 81 mg TAB PO SCH (10:56)
[2018-04-26] MEDS: LEVOTHYROXINE SODIUM 50 MCG TAB PO SCH (10:57)
[2018-04-26] MEDS: ENALAPRIL MALEATE 10 MG TAB PO SCH (10:57)
[2018-04-26] MEDS: PANTOPRAZOLE 40 MG TAB PO SCH (10:57)
[2018-04-26] MEDS: NITROGLYCERIN 0.2MG/HR TOPICAL PATCH TD SCH (10:58)
[2018-04-26 13:05] VITALS: BP 99/63
[2018-04-26] MEDS: IBUPROFEN 600 MG TAB PO SCH ×2 (13:48→22:06)
[2018-04-26 17:08] VITALS: BP 100/64
[2018-04-26] MEDS: ATORVASTATIN 20 MG TAB PO SCH (21:57)
[2018-04-26 22:00] VITALS: BP 134/91
[2018-04-27 05:00] VITALS: BP 95/67
[2018-04-27] MEDS: SILDENAFIL CITRATE 20 MG TAB PO SCH ×2 (06:13→14:00)
[2018-04-27] MEDS: IBUPROFEN 600 MG TAB PO SCH ×2 (06:13→14:00)
[2018-04-27] MEDS: SODIUM CHLOR 0.9% PF (SALINE LOCK) 10ML VIAL/SYR IV SCH ×2 (06:13→14:00)
[2018-04-27 09:00] VITALS: BP 109/72
[2018-04-27] MEDS: FUROSEMIDE 40 MG/4 ML VIAL IV SCH (09:26)
[2018-04-27] MEDS: POTASSIUM CHL 20 Meq TABLET PO SCH (09:26)
[2018-04-27] MEDS: ENOXAPARIN SOD 40 MG/0.4 ML SYRINGE SC SCH (09:26)
[2018-04-27] MEDS: LEVOTHYROXINE SODIUM 50 MCG TAB PO SCH (09:27)
[2018-04-27] MEDS: PANTOPRAZOLE 40 MG TAB PO SCH (09:27)
[2018-04-27] MEDS: ASPirin 81 mg TAB PO SCH (09:27)
[2018-04-27] MEDS: CARVEDILOL 12.5 MG TAB PO SCH (09:28)
[2018-04-27] MEDS: ENALAPRIL MALEATE 10 MG TAB PO SCH (09:28)
[2018-04-27] MEDS: NITROGLYCERIN 0.2MG/HR TOPICAL PATCH TD SCH (09:29)
[2018-04-27 11:00] VITALS: BP 109/72
[2018-04-27 11:16] VITALS: BP 109/72
[2018-04-27 13:00] VITALS: BP 95/66
== END 2018-04-27 14:15 | disposition home or self-care (01) | DRG 291 ==
LOC: ER 03:21 → TELE 03:22 → TELE-EAST 09:23
PROVIDERS: ADMIT Internal Medicine; ATTEND Family Medicine
DX: I11.0 Hypertensive heart disease with heart failure (principal); J96.20 Acute and chronic respiratory failure, unspecified whether with hypoxia or hypercapnia; I69.351 Hemiplegia and hemiparesis following cerebral infarction affecting right dominant side; I50.43 Acute on chronic combined systolic (congestive) and diastolic (congestive) heart failure; E03.9 Hypothyroidism, unspecified; E78.00 Pure hypercholesterolemia, unspecified; E78.5 Hyperlipidemia, unspecified; G89.29 Other chronic pain; T21.22XA Burn of second degree of abdominal wall, initial encounter; I27.20 Pulmonary hypertension, unspecified; Z85.3 Personal history of malignant neoplasm of breast; Z90.13 Acquired absence of bilateral breasts and nipples; Z91.11 Patient's noncompliance with dietary regimen; Z91.19 Patient's noncompliance with other medical treatment and regimen; Z98.82 Breast implant status; Z99.81 Dependence on supplemental oxygen; X08.8XXA Exposure to other specified smoke, fire and flames, initial encounter; Y93.89 Activity, other specified; Y92.89 Other specified places as the place of occurrence of the external cause; Y99.8 Other external cause status
CPT/HCPCS: 36415; 71045; 78582; 80053; 81001; 82550; 83735; 83880; 84484; 85025; 85379; 85610; 85730; 87081; 87205; 93005; 93306; 94640; 96374; 96375